=== PATIENT | male | born 1940 | race Caucasian/White ===

== ENCOUNTER → 2017-04-20 | Day surgery (SDC) | payer MEDICARE, BC ==
[~2017-04-20] MED LIST: Lactated Ringers 1,000 ML IV SCH; Propofol 200 MG/20 ML SDV IV ONE
[2017-04-20 12:51] VITALS: BP 142/85
--- NOTE | 2017-04-23 07:17 | OR ---
DATE OF OPERATION: 04/20/2017 PREOPERATIVE DIAGNOSIS: NAUSEA AND EPIGASTRIC PAIN. POSTOPERATIVE DIAGNOSIS: NAUSEA AND EPIGASTRIC PAIN. SURGEON: Alejandro Leiva MD PROCEDURE: EGD WITH BIOPSIES X5, DEJUAN. 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 BODY AFTER ALLERGIES: COMPLICATIONS: None. SPECIMEN: 1. Antral biopsy x2. 2. Fundal biopsy x1. 3. DEJUAN. 4. Distal esophageal biopsy x2. FINDINGS: 1. Full-length EGD. 2. Diffuse peptic ulcer disease, fundus, antrum and, duodenum. 3. Hiatal hernia with spontaneous reflux and severe distal esophagitis. RECOMMENDATIONS: The patient will be placed on appropriate proton pump therapy and have close medical followup. INDICATIONS: The patient presented to my office, admitted having some dyspepsia, weight loss, and poor appetite. We elected to proceed with EGD. DESCRIPTION OF PROCEDURE: The patient was prepped and draped, placed in the left lateral decubitus position. A lubricated Olympus gastroscope was inserted and easily intubated in the esophagus. Esophageal lining at its first two thirds appeared benign. The distal third of the esophagus has marked linear ulcerations and esophagitis related to reflux. There is a hiatal hernia associated with this, no signs of stricturing or obvious Argueta's changes. Two biopsies of the distal esophagus were taken over its most affected portion. The scope was advanced into the stomach through the pylorus into the third portion of the duodenum. The duodenal bulb and second portion of duodenum showed signs of peptic ulcer disease and duodenitis present in the bulb. There are two small ulcers in the early second portion of duodenum. The scope was brought back into the stomach and retroflexed. The upper fundus and cardia appeared benign. Hernia was visualized easily from below, no signs of any polyps, mass, or otherwise. There is a long linear ulceration throughout most of the fundus extending along the greater curvature, biopsy of that was taken. There are 3-4 small ulcers in the antrum, two biopsies were taken and CLOtest. Air was then suctioned and the scope removed without complication. PRIETO/FARTUN /[id number]
== END ==
LOC: CC.SDS 10:37
PROVIDERS: ATTEND Family Medicine
DX: K22.10 Ulcer of esophagus without bleeding (principal); K25.9 Gastric ulcer, unspecified as acute or chronic, without hemorrhage or perforation; I10 Essential (primary) hypertension; K21.0 Gastro-esophageal reflux disease with esophagitis; E11.9 Type 2 diabetes mellitus without complications; E78.5 Hyperlipidemia, unspecified; G47.33 Obstructive sleep apnea (adult) (pediatric); N40.0 Benign prostatic hyperplasia without lower urinary tract symptoms; Z79.84 Long term (current) use of oral hypoglycemic drugs; Z79.82 Long term (current) use of aspirin; Z79.899 Other long term (current) drug therapy; Z87.891 Personal history of nicotine dependence
CPT/HCPCS: 43239; 82962; 87081; J2704; J7120; 00740; 88305

== ENCOUNTER 2020-02-17 18:39 | Observation (INO) | payer MEDICARE, BC ==
[2020-02-17 18:57] LABS: PTT,PARTIAL THROMBOPLSTIN TIME 21.4 SEC (23.2-32.3)
[2020-02-17 19:01] LABS: CHLORIDE,CL 102 mEq/L (98-106); SODIUM,NA 142 mEq/L (136-145)
--- NOTE | 2020-02-17 19:39 | EDM.PDOC ---
ED HPI GENERAL MEDICAL PROBLEM - General Chief Complaint: Neuro Symptoms/Deficits Stated Complaint: unresponsive at home Time Seen by Provider: 02/17/20 18:40 Source of Information: Reports: EMS History Limitations: Reports: Altered Mental Status - History of Present Illness INITIAL COMMENTS - FREE TEXT/NARRATIVE: Patient presents to ER per EMS after a near syncopal episode. They were in [place] at a friend's house eating supper. Was eating pizza and noted he wasn't eating per his norm. Then had a blank stare, wasn't responding well to them. "still breathing and such but was like talking to a wall" so EMS was called. On arrival, blood pressure was in the 70s/40s at the scene. In the ambulance, blood pressure had improved to 140 systolically. Per EMS was not moving his extremities well to command, questioned facial droop. On arrival here, patient follows commands well but is disoriented. No recall of events or awareness of where he is or the date. Stroke code initiated. Onset: Today, Sudden Duration: Minutes: Location: Reports: Generalized Associated Symptoms: Reports: Confusion, Weakness. Denies: Chest Pain, Cough, Fever/Chills, Loss of Appetite, Nausea/Vomiting, Shortness of Breath - Related Data Allergies Allergy/AdvReac Type Severity Reaction Status Date / Time No Known Allergies Allergy Verified 04/20/17 10:46 Home Meds: Home Meds Aspirin [Halfprin] 81 mg PO DAILY 01/13/16 [History] Lisinopril 10 mg PO DAILY 01/13/16 [History] Naproxen Sodium [Aleve] 220 mg PO BID PRN 01/13/16 [History] Simvastatin 40 mg PO BEDTIME 01/13/16 [History] Tamsulosin HCl 0.8 mg PO DAILY 01/13/16 [History] amLODIPine Besylate [Amlodipine Besylate] 10 mg PO DAILY 01/13/16 [History] metFORMIN HCl [Metformin HCl] 1,000 mg PO BIDMEALS 01/13/16 [History] Past Medical History - Past Health History Medical/Surgical History: Denies Medical/Surgical History Cardiovascular History: Reports: High Cholesterol, Hypertension Respiratory History: Reports: Sleep Apnea Gastrointestinal History: Reports: PUD Neurological History: Reports: Other (See Below) Other Neuro History: memory impairment Endocrine/Metabolic History: Reports: Diabetes, Type II - Past Surgical History Other HEENT Surgeries/Procedures: pt confused of past health Social & Family History - Tobacco Use Smoking Status *Q: Never Smoker - Recreational Drug Use Recreational Drug Use: No ED ROS GENERAL - Review of Systems Review Of Systems: Unable To Obtain Reason Not Obtained: disoriented on arrival, does follow commands. Denies pain or SOB - Physical Exam Exam: See Below Exam Limited By: Altered Mental Status General Appearance: Alert Eye Exam: Bilateral Eye: EOMI, PERRL Ears: Normal External Exam, Normal TMs Nose: Normal Inspection, Normal Mucosa, No Blood Throat/Mouth: Normal Inspection, Normal Oropharynx Head Exam: Normocephalic Neck: Normal Inspection, Supple, Non-Tender Respiratory/Chest: No Respiratory Distress, Lungs Clear, Normal Breath Sounds Cardiovascular: Regular Rate, Rhythm GI/Abdominal: Normal Bowel Sounds, Soft, Non-Tender Neuro Exam (Abbreviated): Alert, CN II-XII Intact, Disoriented (oriented to person only), Memory Loss Recent Events, Other (NIH scale completed. Patient disoriented to place and time. Does follow commands, no weakness noted in extremities. Right side peripheral deficit noted, 2 points off for disorientation. Unable to completely explain picture, some difficulty with recall. ) Extremities: Normal Inspection, Normal Range of Motion, No Pedal Edema Skin Exam: Warm, Dry Course - Vital Signs Last Recorded V/S: Last Vital Signs Temp 96 F L 02/17/20 19:45 Pulse 65 02/17/20 19:45 Resp 17 02/17/20 19:45 BP 131/75 02/17/20 19:45 Pulse Ox 98 02/17/20 19:45 - Orders/Labs/Meds Orders: Active Orders 24 hr Category Date Time Status Patient Status Manage Transfer [TRANSFER] Routine ADT 02/17/20 19:40 Active Assess Neurological Status [RC] CONTINUOUS Care 02/17/20 18:43 Active Cardiac Monitoring [RC] CONTINUOUS Care 02/17/20 18:43 Active Communication Order [RC] STAT Care 02/17/20 18:43 Active Height and Weight [RC] UPON Care 02/17/20 18:43 Active NIH Stroke Scale [RC] Q15M Care 02/17/20 18:43 Active NIH Stroke Scale [RC] STAT Care 02/17/20 18:43 Active Oxygen Therapy, ED [RC] ASDIRECTED Care 02/17/20 18:43 Active Vital Signs [RC] Q15M Care 02/17/20 18:43 Active Head wo Cont [CT] Stat Exams 02/17/20 18:43 Taken Resuscitation Status Stat Resus Stat 02/17/20 18:43 Ordered Labs: Laboratory Tests 02/17/20 02/17/20 02/17/20 Range/Units 18:43 18:43 18:43 WBC 8.5 (5.0-10.0) 10^3/uL RBC 4.95 (4.50-6.00) 10^6/uL Hgb 15.2 (14.0-18.0) g/dL Hct 43.9 (40.0-54.0) % MCV 88.7 (82.0-94.0) fL MCH 30.7 (27.0-32.0) pg MCHC 34.6 (33.0-38.0) g/dL RDW Coeff of Page 13.1 (11.0-15.0) % Plt Count 206 (150-400) 10^3/uL Neut % (Auto) 46.2 (35-85) % Lymph % (Auto) 36.2 (10-55) % [place] % (Auto) 10.0 (0-16) % Eos % (Auto) 6.7 H (0-5) % Baso % (Auto) 0.9 (0-3) % Neut # (Auto) 3.90 (1.80-7.00) 10^3/uL Lymph # (Auto) 3.06 (1.00-4.80) 10^3/uL [place] # (Auto) 0.85 H (0.00-0.80) 10^3/uL Eos # (Auto) 0.57 H (0.00-0.45) 10^3/uL Baso # (Auto) 0.08 10^3/uL PT 11.5 (9.7-12.3) SEC INR 1.14 (0.92-1.18) APTT 21.4 L (23.2-32.3) SEC Sodium 142 (136-145) mEq/L Potassium 3.7 (3.5-5.0) mEq/L Chloride 102 (98-106) mEq/L Carbon Dioxide 29 (21-32) mmol/L BUN 21 H (7-18) mg/dL Creatinine 1.3 (0.7-1.3) mg/dL Est Cr Clr Drug Dosing 43.12 mL/min Estimated GFR (MDRD) 53 L (>=60) mL/min Glucose 132 H (75-99) mg/dL Calcium 9.1 (8.4-10.1) mg/dL Total Bilirubin 0.6 (0.0-1.0) mg/dL AST 12 L (15-37) U/L ALT 12 (12-78) U/L Alkaline Phosphatase 60 (46-116) U/L Troponin I < 0.017 (0.00-0.06) ng/mL Total Protein 6.8 (6.4-8.2) g/dL Albumin 4.0 (3.4-5.0) g/dL Urine Color (YELLOW) Urine Appearance (CLEAR) Urine pH (4.5-8.0) Ur Specific [place] (1.003-1.020) Urine Protein (NEGATIVE) mg/dL Urine Glucose (UA) (NEGATIVE) mg/dL Urine Ketones (NEGATIVE) mg/dL Urine Occult Blood (NEGATIVE) Urine Nitrite (NEGATIVE) Urine Bilirubin (NEGATIVE) Urine Urobilinogen (0.2-1.0) EU/dL Ur Leukocyte Esterase (NEGATIVE) U Hyaline Cast (Auto) (NOT SEEN) /LPF Urine RBC (0-5) /HPF Urine WBC (0-5) /HPF Ur Epithelial Cells (NOT SEEN) /HPF Urine Mucus (NOT SEEN) /HPF 05/12/ Range/Units 19:27 WBC (5.0-10.0) 10^3/uL RBC (4.50-6.00) 10^6/uL Hgb (14.0-18.0) g/dL Hct (40.0-54.0) % MCV (82.0-94.0) fL MCH (27.0-32.0) pg MCHC (33.0-38.0) g/dL RDW Coeff of Page (11.0-15.0) % Plt Count (150-400) 10^3/uL Neut % (Auto) (35-85) % Lymph % (Auto) (10-55) % [place] % (Auto) (0-16) % Eos % (Auto) (0-5) % Baso % (Auto) (0-3) % Neut # (Auto) (1.80-7.00) 10^3/uL Lymph # (Auto) (1.00-4.80) 10^3/uL [place] # (Auto) (0.00-0.80) 10^3/uL Eos # (Auto) (0.00-0.45) 10^3/uL Baso # (Auto) 10^3/uL PT (9.7-12.3) SEC INR (0.92-1.18) APTT (23.2-32.3) SEC Sodium (136-145) mEq/L Potassium (3.5-5.0) mEq/L Chloride (98-106) mEq/L Carbon Dioxide (21-32) mmol/L BUN (7-18) mg/dL Creatinine (0.7-1.3) mg/dL Est Cr Clr Drug Dosing mL/min Estimated GFR (MDRD) (>=60) mL/min Glucose (75-99) mg/dL Calcium (8.4-10.1) mg/dL Total Bilirubin (0.0-1.0) mg/dL AST (15-37) U/L ALT (12-78) U/L Alkaline Phosphatase (46-116) U/L Troponin I (0.00-0.06) ng/mL Total Protein (6.4-8.2) g/dL Albumin (3.4-5.0) g/dL Urine Color Ellie (YELLOW) Urine Appearance Slightly cloudy (CLEAR) Urine pH 5.5 (4.5-8.0) Ur Specific [place] >= 1.030 H (1.003-1.020) Urine Protein 30 H (NEGATIVE) mg/dL Urine Glucose (UA) Negative (NEGATIVE) mg/dL Urine Ketones 15 H (NEGATIVE) mg/dL Urine Occult Blood Negative (NEGATIVE) Urine Nitrite Negative (NEGATIVE) Urine Bilirubin Small H (NEGATIVE) Urine Urobilinogen 1.0 (0.2-1.0) EU/dL Ur Leukocyte Esterase Negative (NEGATIVE) U Hyaline Cast (Auto) Moderate H (NOT SEEN) /LPF Urine RBC 0-5 (0-5) /HPF Urine WBC 0-5 (0-5) /HPF Ur Epithelial Cells Few H (NOT SEEN) /HPF Urine Mucus Many H (NOT SEEN) /HPF - Re-Assessments/Exams Free Text/Narrative Re-Assessment/Exam: 02/17/20 Approximately 30 minutes after arrival, patient following commands, speaking more clearly, oriented. Unable to recall meds but per record, does have memory impairment. Discussed with , has been "off as of late". Was in to see Dr. Leiva 2 weeks ago for memory issues, loss of taste and smell. Labs all normal. Urine does show spec grav of greater than 1.030. CT scan of head was done, negative. EKG normal sinus rhythm. Contacted Dr. Leiva to discuss patient. Will admit to observation, telemetry, neuro checks. Will proceed with carotid ultrasound and echocardiogram. Consider MRI of brain on Sunday. Departure - Departure Time of Disposition: 20:31 Disposition: Refer to Observation Condition: Fair Clinical Impression: Near syncope - Discharge Information *PRESCRIPTION DRUG MONITORING PROGRAM REVIEWED*: No *COPY OF PRESCRIPTION DRUG MONITORING REPORT IN PATIENT EMMA: No Referrals: PCP,None [Primary Care Provider] - Forms: ED Department Discharge Sepsis Event Note - Evaluation Sepsis Screening Result: No Definite Risk - Focused Exam Vital Signs: Vital Signs Temp Pulse Resp BP Pulse Ox Pulse Ox 02/17/20 19:45 96 F L 65 17 131/75 98 02/17/20 19:30 96 F L 64 16 162/78 H 97 02/17/20 19:15 96 F L 67 16 151/81 H 95 02/17/20 19:13 66 18 159/84 H 99 02/17/20 18:58 97 17 158/82 H 98 02/17/20 18:47 96 F L 58 L 16 158/82 H 95 02/17/20 18:43 98 Date Exam was Performed: 02/17/20 Time Exam was Performed: 20:23 - Problem List & Annotations (1) Near syncope SNOMED Code(s): 897565928 Code(s): R55 - SYNCOPE AND COLLAPSE Status: Acute Priority: High Current Visit: Yes - Problem List Review Problem List Initiated/Reviewed/Updated: Yes - My Orders Last 24 Hours: My Active Orders 02/17/20 18:43 Assess Neurological Status [RC] CONTINUOUS Cardiac Monitoring [RC] CONTINUOUS Communication Order [RC] STAT Height and Weight [RC] UPON NIH Stroke Scale [RC] Q15M NIH Stroke Scale [RC] STAT Oxygen Therapy, ED [RC] ASDIRECTED Vital Signs [RC] Q15M Head wo Cont [CT] Stat Resuscitation Status Stat 02/17/20 19:40 Patient Status Manage Transfer [TRANSFER] Routine - Assessment/Plan Admission H&P: Please use this note as an admission H&P Last 24 Hours: My Active Orders 02/17/20 18:43 Assess Neurological Status [RC] CONTINUOUS Cardiac Monitoring [RC] CONTINUOUS Communication Order [RC] STAT Height and Weight [RC] UPON NIH Stroke Scale [RC] Q15M NIH Stroke Scale [RC] STAT Oxygen Therapy, ED [RC] ASDIRECTED Vital Signs [RC] Q15M Head wo Cont [CT] Stat Resuscitation Status Stat 02/17/20 19:40 Patient Status Manage Transfer [TRANSFER] Routine Assessment:: Near Syncope Plan: Admit to observation. Cardiac monitoring. Repeat neuro checks. Obtain echocardiogram and carotid ultrasound.
[2020-02-17] MEDS ORDERED: Ondansetron 4 MG Tab.DIS PO PRN (20:38)
[2020-02-17] MEDS ORDERED: Acetaminophen 325 MG Tab PO PRN (20:38)
[2020-02-17] MEDS ORDERED: Ondansetron 4 MG/2 ML SDV IV PRN (20:38)
[2020-02-17] MEDS ORDERED: Sodium Chloride 0.9% 10 ML Syringe FLUSH PRN (20:38)
[2020-02-17] MEDS: Enoxaparin 40 MG/0.4 ML Syringe SUBCUT SCH (21:27)
[2020-02-17] MEDS: Sodium Chloride 0.9% 1,000 ML IV SCH (21:28)
[2020-02-18] MEDS: Sodium Chloride 0.9% 1,000 ML IV SCH ×2 (07:00→18:28)
[2020-02-18 07:34] LABS: CHLORIDE,CL 105 mEq/L (98-106); SODIUM,NA 140 mEq/L (136-145)
[2020-02-18] MEDS: Aspirin 81 MG Tab.EC PO SCH (08:46)
[2020-02-18] MEDS: amLODIPine 10 MG Tab **OWN MED PO SCH (08:46)
[2020-02-18] MEDS: METFORMIN HCL 1000 MG PO SCH ×2 (08:46→19:51)
[2020-02-18] MEDS: SITAGLIPTIN 50 MG PO SCH (08:47)
[2020-02-18] MEDS: Lisinopril 10 MG Tab **OWN MED PO SCH (08:48)
[2020-02-18] MEDS: Pantoprazole 40 MG Tab.CR **OWN MED PO SCH (08:48)
[2020-02-18] MEDS: Tamsulosin 0.4 MG Cap.ER **OWN MED PO SCH (10:23)
--- NOTE | 2020-02-18 18:59 | PCM.PN ---
- General Info Date of Service: 02/18/20 Admission Dx/Problem (Free Text): Near Syncope Functional Status: Reports: Pain Controlled, Tolerating Diet, Ambulating - Review of Systems General: Reports: Weakness, Fatigue. Denies: Fever HEENT: Reports: No Symptoms Pulmonary: Denies: Shortness of Breath, Cough Cardiovascular: Denies: Chest Pain, Edema, Lightheadedness Gastrointestinal: Denies: Abdominal Pain, Nausea, Vomiting Genitourinary: Reports: No Symptoms Musculoskeletal: Reports: No Symptoms Skin: Reports: No Symptoms Neurological: Reports: Weakness - Patient Data Vitals - Most Recent: Last Vital Signs Temp 96.7 F L 02/18/20 16:00 Pulse 57 L 02/18/20 16:00 Resp 16 02/18/20 16:00 BP 136/65 02/18/20 16:00 Pulse Ox 97 02/18/20 16:00 Weight - Most Recent: 169 lb 12.8 oz I&O - Last 24 Hours: Intake & Output 02/18/20 02/18/20 02/18/20 06:59 14:59 22:59 Intake Total 953 1000 Balance 953 1000 Lab Results Last 24 Hours: Laboratory Results - last 24 hr 02/17/20 02/17/20 02/17/20 Range/Units 18:43 18:43 19:27 WBC (5.0-10.0) 10^3/uL RBC (4.50-6.00) 10^6/uL Hgb (14.0-18.0) g/dL Hct (40.0-54.0) % MCV (82.0-94.0) fL MCH (27.0-32.0) pg MCHC (33.0-38.0) g/dL RDW Coeff of Page (11.0-15.0) % Plt Count (150-400) 10^3/uL Neut % (Auto) (35-85) % Lymph % (Auto) (10-55) % [place] % (Auto) (0-16) % Eos % (Auto) (0-5) % Baso % (Auto) (0-3) % Neut # (Auto) (1.80-7.00) 10^3/uL Lymph # (Auto) (1.00-4.80) 10^3/uL [place] # (Auto) (0.00-0.80) 10^3/uL Eos # (Auto) (0.00-0.45) 10^3/uL Baso # (Auto) 10^3/uL PT 11.5 (9.7-12.3) SEC INR 1.14 (0.92-1.18) APTT 21.4 L (23.2-32.3) SEC Sodium 142 (136-145) mEq/L Potassium 3.7 (3.5-5.0) mEq/L Chloride 102 (98-106) mEq/L Carbon Dioxide 29 (21-32) mmol/L BUN 21 H (7-18) mg/dL Creatinine 1.3 (0.7-1.3) mg/dL Est Cr Clr Drug Dosing 43.12 mL/min Estimated GFR (MDRD) 53 L (>=60) mL/min Glucose 132 H (75-99) mg/dL Calcium 9.1 (8.4-10.1) mg/dL Total Bilirubin 0.6 (0.0-1.0) mg/dL AST 12 L (15-37) U/L ALT 12 (12-78) U/L Alkaline Phosphatase 60 (46-116) U/L Creatine Kinase (35-232) U/L Troponin I < 0.017 (0.00-0.06) ng/mL Total Protein 6.8 (6.4-8.2) g/dL Albumin 4.0 (3.4-5.0) g/dL Urine Color Ellie (YELLOW) Urine Appearance Slightly cloudy (CLEAR) Urine pH 5.5 (4.5-8.0) Ur Specific [place] >= 1.030 H (1.003-1.020) Urine Protein 30 H (NEGATIVE) mg/dL Urine Glucose (UA) Negative (NEGATIVE) mg/dL Urine Ketones 15 H (NEGATIVE) mg/dL Urine Occult Blood Negative (NEGATIVE) Urine Nitrite Negative (NEGATIVE) Urine Bilirubin Small H (NEGATIVE) Urine Urobilinogen 1.0 (0.2-1.0) EU/dL Ur Leukocyte Esterase Negative (NEGATIVE) U Hyaline Cast (Auto) Moderate H (NOT SEEN) /LPF Urine RBC 0-5 (0-5) /HPF Urine WBC 0-5 (0-5) /HPF Ur Epithelial Cells Few H (NOT SEEN) /HPF Urine Mucus Many H (NOT SEEN) /HPF 02/18/20 02/18/20 Range/Units 06:55 06:55 WBC 8.7 (5.0-10.0) 10^3/uL RBC 4.41 L (4.50-6.00) 10^6/uL Hgb 13.4 L (14.0-18.0) g/dL Hct 39.3 L (40.0-54.0) % MCV 89.1 (82.0-94.0) fL MCH 30.4 (27.0-32.0) pg MCHC 34.1 (33.0-38.0) g/dL RDW Coeff of Page 13.1 (11.0-15.0) % Plt Count 189 (150-400) 10^3/uL Neut % (Auto) 57.4 (35-85) % Lymph % (Auto) 28.7 (10-55) % [place] % (Auto) 8.5 (0-16) % Eos % (Auto) 4.7 (0-5) % Baso % (Auto) 0.7 (0-3) % Neut # (Auto) 5.00 (1.80-7.00) 10^3/uL Lymph # (Auto) 2.50 (1.00-4.80) 10^3/uL [place] # (Auto) 0.74 (0.00-0.80) 10^3/uL Eos # (Auto) 0.41 (0.00-0.45) 10^3/uL Baso # (Auto) 0.06 10^3/uL PT (9.7-12.3) SEC INR (0.92-1.18) APTT (23.2-32.3) SEC Sodium 140 (136-145) mEq/L Potassium 3.7 (3.5-5.0) mEq/L Chloride 105 (98-106) mEq/L Carbon Dioxide 28 (21-32) mmol/L BUN 21 H (7-18) mg/dL Creatinine 1.1 (0.7-1.3) mg/dL Est Cr Clr Drug Dosing 50.95 mL/min Estimated GFR (MDRD) > 60 (>=60) mL/min Glucose 104 H (75-99) mg/dL Calcium 8.2 L (8.4-10.1) mg/dL Total Bilirubin (0.0-1.0) mg/dL AST (15-37) U/L ALT (12-78) U/L Alkaline Phosphatase (46-116) U/L Creatine Kinase 25 L (35-232) U/L Troponin I (0.00-0.06) ng/mL Total Protein (6.4-8.2) g/dL Albumin (3.4-5.0) g/dL Urine Color (YELLOW) Urine Appearance (CLEAR) Urine pH (4.5-8.0) Ur Specific [place] (1.003-1.020) Urine Protein (NEGATIVE) mg/dL Urine Glucose (UA) (NEGATIVE) mg/dL Urine Ketones (NEGATIVE) mg/dL Urine Occult Blood (NEGATIVE) Urine Nitrite (NEGATIVE) Urine Bilirubin (NEGATIVE) Urine Urobilinogen (0.2-1.0) EU/dL Ur Leukocyte Esterase (NEGATIVE) U Hyaline Cast (Auto) (NOT SEEN) /LPF Urine RBC (0-5) /HPF Urine WBC (0-5) /HPF Ur Epithelial Cells (NOT SEEN) /HPF Urine Mucus (NOT SEEN) /HPF Med Orders - Current: Current Medications Acetaminophen (Tylenol) 650 mg PO Q4H PRN PRN Reason: Pain (Mild 1-3)/fever Amlodipine Besylate (Norvasc) 10 mg PO DAILY [facility] Last Admin: 02/18/20 08:46 Dose: 10 mg Aspirin (Halfprin) 81 mg PO DAILY [facility] Last Admin: 02/18/20 08:46 Dose: 81 mg Enoxaparin Sodium (Lovenox) 40 mg SUBCUT Q24H [facility] Last Admin: 02/17/20 21:27 Dose: 40 mg Sodium Chloride (Normal Saline) 1,000 mls @ 100 mls/hr IV ASDIRECTED [facility] Last Admin: 02/18/20 18:28 Dose: 100 mls/hr Lisinopril (Prinivil) 10 mg PO DAILY [facility] Last Admin: 02/18/20 08:48 Dose: 10 mg Metformin Hcl [ Glucophage) 1,000 Mg Tab Own Med 0 mg PO BID [facility] Last Admin: 02/18/20 08:46 Dose: 1,000 mg Sitagliptin [Januvia ] 50 Mg Tab Own Med 0 mg PO DAILY [facility] Last Admin: 02/18/20 08:47 Dose: 50 mg Ondansetron HCl (Zofran Odt) 4 mg PO Q4H PRN PRN Reason: nausea, able to take PO Ondansetron HCl (Zofran) 4 mg IV Q4H PRN PRN Reason: Nausea/Vomiting Pantoprazole Sodium (Protonix) 40 mg PO ACBREAKFAST [facility] Last Admin: 02/18/20 08:48 Dose: 40 mg Simvastatin (Zocor) 40 mg PO BEDTIME [facility] Sodium Chloride (Saline Flush) 10 ml FLUSH ASDIRECTED PRN PRN Reason: Keep Vein Open Tamsulosin HCl (Flomax) 0.8 mg PO DAILY [facility] Last Admin: 02/18/20 10:23 Dose: 0.8 mg - Exam General: Alert, Oriented HEENT: Mucous Membr. Moist/[place] Neck: Supple Lungs: Clear to Auscultation, Normal Respiratory Effort Cardiovascular: Regular Rate, Regular Rhythm GI/Abdominal Exam: Normal Bowel Sounds, Soft, Non-Tender Extremities: Normal Inspection, No Pedal Edema Skin: Warm, Dry Neurological: No New Focal Deficit Sepsis Event Note - Evaluation Sepsis Screening Result: No Definite Risk - Focused Exam Vital Signs: Vital Signs Temp Pulse Resp BP BP BP Pulse Ox 02/18/20 16:00 96.7 F L 57 L 16 136/65 97 02/18/20 11:18 97.3 F 52 L 16 154/69 H 99 02/18/20 08:48 155/74 H 02/18/20 08:46 155/71 H 02/18/20 07:36 97.3 F 53 L 16 155/71 H 97 Date Exam was Performed: 02/18/20 Time Exam was Performed: 18:54 - Problem List & Annotations (1) Near syncope SNOMED Code(s): 960237349 Code(s): R55 - SYNCOPE AND COLLAPSE Status: Acute Priority: High Current Visit: Yes - Problem List Review Problem List Initiated/Reviewed/Updated: Yes - My Orders Last 24 Hours: My Active Orders 02/17/20 18:43 Assess Neurological Status [RC] CONTINUOUS Cardiac Monitoring [RC] 0800,2000 Height and Weight [RC] UPON NIH Stroke Scale [RC] Q15M NIH Stroke Scale [RC] STAT Head wo Cont [CT] Stat Resuscitation Status Stat 02/17/20 20:38 Patient Status [ADT] Routine Neuro Check [RC] 0000,0400,0800,1200,1600,1999 Oxygen Therapy [RC] .PRN Up With Assistance [RC] .PRN Acetaminophen [Tylenol] 650 mg PO Q4H PRN Ondansetron [Zofran ODT] 4 mg PO Q4H PRN Ondansetron [Zofran] 4 mg IV Q4H PRN Sodium Chloride 0.9% [Saline Flush] 10 ml FLUSH ASDIRECTED PRN Peripheral IV Insertion Adult [OM.PC] Routine 02/17/20 20:45 Sodium Chloride 0.9% [Normal Saline] 1,000 ml IV ASDIRECTED 02/17/20 21:00 Enoxaparin [Lovenox] 40 mg SUBCUT Q24H 02/18/20 00:00 Vital Signs [RC] 0000,0400,0800,1200,1600,2000 02/18/20 05:11 Carotid Comp [US] Routine Echo Comp wo Cont [US] Routine 02/18/20 08:00 Aspirin [Halfprin] 81 mg PO DAILY Pantoprazole [ProTONIX] 40 mg PO ACBREAKFAST amLODIPine [Norvasc] 10 mg PO DAILY lisinopriL [Prinivil] 10 mg PO DAILY metFORMIN HCl [Metformin HCl] 0 mg PO BID sitaGLIPtin Phosphate [Januvia] 0 mg PO DAILY 02/18/20 10:30 Tamsulosin [Flomax] 0.8 mg PO DAILY 02/18/20 20:00 Simvastatin [Zocor] 40 mg PO BEDTIME 02/18/20 Breakfast Consistent Carbohydrate Diet [DIET] - Assessment Assessment:: Near Syncope - Plan Plan:: Patient is feeling better today. Feels stronger today. Questions if his exhaustion and the episode occurred as a result of dehydration. Did feel that had not drank enough fluids and had been busy the day prior mowing lawn. Is eating and drinking well today. Ambulating well today. Denies any lightheadedness, chest pain, shortness of breath this am. Labs this am are stable, CK normal at 25. Blood pressure was low during the night at 117/53. Normal this am, 155/74. Will obtain echocardiogram and carotid ultrasound. Continue to monitor telemetry. Continue to hold Aricept and Ambien. Possible discharge home tomorrow.
[2020-02-18] MEDS ORDERED: Simvastatin 40 MG Tab **OWN MED PO SCH (20:00)
[2020-02-18] MEDS: Enoxaparin 40 MG/0.4 ML Syringe SUBCUT SCH (20:01)
[2020-02-19] MEDS: Pantoprazole 40 MG Tab.CR **OWN MED PO SCH (06:03)
[2020-02-19] MEDS: Lisinopril 10 MG Tab **OWN MED PO SCH (08:41)
[2020-02-19] MEDS: amLODIPine 10 MG Tab **OWN MED PO SCH (08:41)
[2020-02-19] MEDS: SITAGLIPTIN 50 MG PO SCH (08:41)
[2020-02-19] MEDS: METFORMIN HCL 1000 MG PO SCH (08:42)
[2020-02-19] MEDS: Tamsulosin 0.4 MG Cap.ER **OWN MED PO SCH (08:42)
[2020-02-19] MEDS: Aspirin 81 MG Tab.EC PO SCH (08:44)
[2020-02-19 08:46] VITALS: BP 184/82
[2020-02-19 11:01] VITALS: PULSE 61
--- NOTE | 2020-02-20 08:17 | DISCH ---
ADMISSION DIAGNOSES: 1. Syncopal episode, possible cerebrovascular accident. 2. Dehydration. 3. Hypertension. 4. Type 2 diabetes. DISCHARGE DIAGNOSIS: 1. NEAR-SYNCOPE. 2. DEHYDRATION, IMPROVED. 3. TYPE 2 DIABETES. 4. HYPERTENSION. HISTORY: The patient is an 80-year-old who presented having a near-syncopal episode at home. He had been doing a lot of work, ambulating, and mowing the lawn, etc. By the time the ambulance got there, his blood pressures, which were initially around 70/40, came up on their own. He came to [facility], was found to be a little sluggish and confused, but no focality to his neuro exam according to notes. Georgina Castro admitted him for observation. CT of the head was negative, and his labs were unremarkable. HOSPITAL COURSE: The patient has done well since being here after being fluid resuscitated. He has essentially had a normal neuro exam. He denies any complaints. His blood pressures have been fine, little hypertensive today. We did hold both his Ambien and his Aricept as he has been having some side effects consistent possibly with those medications, and he will continue to monitor that. He had an echocardiogram and a carotid ultrasound. The carotid was negative. Echo results are pending. He did have what he described as some blurry vision in his right eye, and Georgina thought initially on admit he had some loss of peripheral vision over there. So we are going to get an MRI of his brain tomorrow. For now, we will keep him on daily aspirin. At the time of his discharge, he appears stable. He will go home on his prior medications without the Ambien and Aricept, and MRI will be done tomorrow morning. COMPLICATIONS: During the stay were none. CONSULTATIONS: None. DISPOSITION: Discharged home. PRIETO/FARTUN /[id number]
== END 2020-02-19 11:20 | disposition home or self-care (01) ==
LOC: CC.ED 18:39 → CC.MS 19:40 → UNDOADMOB 20:34
PROVIDERS: ADMIT Physician Assistant Medical; ATTEND Family Medicine
DX: R55 Syncope and collapse (principal); E86.0 Dehydration; E78.00 Pure hypercholesterolemia, unspecified; I10 Essential (primary) hypertension; E11.9 Type 2 diabetes mellitus without complications; Z79.84 Long term (current) use of oral hypoglycemic drugs; Z79.899 Other long term (current) drug therapy
CPT/HCPCS: 36415; 70450; 80048; 80053; 81001; 82550; 84484; 85025; 85610; 85730; 93005; 93306; 93880; 96360; 96361; 96372; 99285-25; A9270-GY; G0378; J1650; J7030

== ENCOUNTER 2020-09-23 15:18 | Inpatient (IN) | payer MEDICARE, BC ==
[2020-09-23 15:49] LABS: CHLORIDE,CL 101 mEq/L (98-106); SODIUM,NA 138 mEq/L (136-145)
[2020-09-23] MEDS ORDERED: NS + KCl 20mEq/L 1,000 ML IV SCH (17:00)
[2020-09-23] MEDS ORDERED: 50% Dextrose in Water 50 ML Syringe IV PRN (17:01)
[2020-09-23] MEDS ORDERED: Glucagon,Human Recombinant 1 MG Vial IM PRN (17:01)
[2020-09-23] MEDS: Insulin Lispro 100 Units/ML 3 ML Vial SUBCUT SCH ×2 (17:27→21:15)
[2020-09-23] MEDS: amLODIPine 10 MG Tab PO SCH (17:28)
[2020-09-23] MEDS: Lisinopril 10 MG Tab PO SCH (18:58)
[2020-09-23] MEDS: Simvastatin 40 MG Tab PO SCH (19:21)
[2020-09-23] MEDS: Enoxaparin 40 MG/0.4 ML Syringe SUBCUT SCH (21:14)
[2020-09-24] MEDS: Pantoprazole 40 MG Tab.CR PO SCH (06:28)
[2020-09-24 07:35] LABS: CHLORIDE,CL 104 mEq/L (98-106); SODIUM,NA 142 mEq/L (136-145)
[2020-09-24] MEDS: metFORMIN 500 MG Tab PO SCH (08:02)
[2020-09-24] MEDS: Tamsulosin 0.4 MG Cap.ER PO SCH (08:03)
[2020-09-24] MEDS: amLODIPine 10 MG Tab PO SCH (08:03)
[2020-09-24] MEDS: Aspirin 81 MG Tab.EC PO SCH (08:03)
[2020-09-24] MEDS: Lisinopril 10 MG Tab PO SCH (08:04)
[2020-09-24] MEDS: Insulin Lispro 100 Units/ML 3 ML Vial SUBCUT SCH ×4 (08:04→20:24)
[2020-09-24] MEDS ORDERED: Potassium Chloride Riders 40 MEQ in Premix Bag 1 BAG IV ONE (09:30)
[2020-09-24] MEDS ORDERED: Sodium Chloride 0.9% 250 ML IV ONE (09:30)
[2020-09-24] MEDS: Nitroglycerin 2% Oint 1 GM UD Packet TOP SCH ×2 (09:37→17:30)
[2020-09-24] MEDS: Potassium Chloride 10 MEQ Tab.ER PO SCH (09:37)
[2020-09-24] MEDS ORDERED: cloNIDine 0.1 MG Tab PO STA (12:11)
[2020-09-24] MEDS: Simvastatin 40 MG Tab PO SCH (19:58)
[2020-09-24] MEDS: Enoxaparin 40 MG/0.4 ML Syringe SUBCUT SCH (19:59)
[2020-09-24] MEDS: Acetaminophen 325 MG Tab PO PRN (19:59)
--- NOTE | 2020-09-24 21:33 | PCM.PN ---
- General Info Date of Service: 09/24/20 Admission Dx/Problem (Free Text): Hypertensive urgency Hypokalemia Memory loss Subjective Update: Tashi is an 80 yo male who was admitted to the hospital by Dr. Leiva yesterday with hypertensive urgency. Patient had presented to the clinic with his spouse to discuss a decline in memory. Symptoms were noted to be getting worse over the last 3-4 weeks. Upon work up by Dr. Leiva, patient had significant elevation of his blood pressure and found to have hypokalemia. Patient was a direct admit from hospital. Patient is a known diabetic with elevated blood sugar readings and was started on sliding scale while in hospital. Functional Status: Reports: Ambulating, Urinating. Denies: New Symptoms - Review of Systems General: Reports: Fatigue. Denies: Fever, Chills, Appetite HEENT: Reports: No Symptoms Pulmonary: Denies: Shortness of Breath, Cough, Wheezing Cardiovascular: Denies: Chest Pain, Palpitations, Edema, Lightheadedness Gastrointestinal: Reports: Decreased Appetite. Denies: Abdominal Pain, Constipation, Diarrhea, Nausea, Vomiting Genitourinary: Reports: Frequency. Denies: Burning, Pain, Hematuria Musculoskeletal: Reports: No Symptoms Skin: Reports: No Symptoms Neurological: Reports: Headache. Denies: Paresthesia, Syncope, Trouble Speaking, Difficulty Walking - Patient Data Vitals - Most Recent: Last Vital Signs Temp 98.9 F 09/24/20 15:55 Pulse 96 09/24/20 15:55 Resp 18 09/24/20 15:55 BP 139/92 H 09/24/20 15:55 Pulse Ox 97 09/24/20 15:55 Weight - Most Recent: 181 lb 9.6 oz I&O - Last 24 Hours: Intake & Output 09/24/20 09/24/20 09/24/20 06:59 14:59 22:59 Intake Total 300 Output Total 1800 Balance -1500 Lab Results Last 24 Hours: Laboratory Results - last 24 hr 09/23/20 09/24/20 09/24/20 Range/Units 21:03 07:10 07:33 Sodium 142 (136-145) mEq/L Potassium 3.0 L (3.5-5.0) mEq/L Chloride 104 (98-106) mEq/L Carbon Dioxide 28 (21-32) mmol/L BUN 11 (7-18) mg/dL Creatinine 1.1 (0.7-1.3) mg/dL Est Cr Clr Drug Dosing 49.24 mL/min Estimated GFR (MDRD) > 60 (>=60) mL/min Glucose 244 H D (75-99) mg/dL POC Glucose 166 H 216 H (75-105) mg/dl Calcium 8.5 (8.4-10.1) mg/dL 09/24/20 09/24/20 09/24/20 Range/Units 12:04 17:22 20:21 Sodium (136-145) mEq/L Potassium (3.5-5.0) mEq/L Chloride (98-106) mEq/L Carbon Dioxide (21-32) mmol/L BUN (7-18) mg/dL Creatinine (0.7-1.3) mg/dL Est Cr Clr Drug Dosing mL/min Estimated GFR (MDRD) (>=60) mL/min Glucose (75-99) mg/dL POC Glucose 299 H 217 H 261 H (75-105) mg/dl Calcium (8.4-10.1) mg/dL Med Orders - Current: Current Medications Acetaminophen (Tylenol) 650 mg PO Q4H PRN PRN Reason: Pain (Mild 1-3)/fever Last Admin: 09/24/20 19:59 Dose: 650 mg Documented by: Alogliptin Benzoate (Alogliptin) 12.5 mg PO DAILY [facility] Last Admin: 09/24/20 08:04 Dose: 12.5 mg Documented by: Amlodipine Besylate (Norvasc) 10 mg PO DAILY [facility] Last Admin: 09/24/20 08:03 Dose: 10 mg Documented by: Aspirin (Halfprin) 81 mg PO DAILY [facility] Last Admin: 09/24/20 08:03 Dose: 81 mg Documented by: Dextrose/Water (Dextrose 50% In Water) 50 ml IV ASDIRECTED PRN PRN Reason: Hypoglycemia Enoxaparin Sodium (Lovenox) 40 mg SUBCUT Q24H [facility] Last Admin: 09/24/20 19:59 Dose: 40 mg Documented by: Glucagon (Glucagen) 1 mg IM ASDIRECTED PRN PRN Reason: Hypoglycemia Potassium Chloride/Sodium Chloride (Normal Saline With 20 Meq Kcl) 1,000 mls @ 75 mls/hr IV ASDIRECTED [facility] Last Admin: 09/23/20 19:23 Dose: 75 mls/hr Documented by: Insulin Human Lispro (Humalog) 0 unit SUBCUT WITHMEALSANDBED [facility]; Protocol Last Admin: 09/24/20 20:24 Dose: 3 units Documented by: Lisinopril (Prinivil) 10 mg PO DAILY [facility] Last Admin: 09/24/20 08:04 Dose: 10 mg Documented by: Metformin HCl (Glucophage) 1,000 mg PO DAILY [facility] Last Admin: 09/24/20 08:02 Dose: 1,000 mg Documented by: Nitroglycerin (Nitro-Bid 2%) 1 gm TOP Q8H [facility] Last Admin: 09/24/20 17:30 Dose: Not Given Documented by: Pantoprazole Sodium (Protonix) 40 mg PO ACBREAKFAST [facility] Last Admin: 09/24/20 06:28 Dose: 40 mg Documented by: Potassium Chloride (Klor-Con 10) 20 meq PO DAILY [facility] Last Admin: 09/24/20 09:37 Dose: 20 meq Documented by: Simvastatin (Zocor) 40 mg PO BEDTIME [facility] Last Admin: 09/24/20 19:58 Dose: 40 mg Documented by: Tamsulosin HCl (Flomax) 0.8 mg PO DAILY [facility] Last Admin: 09/24/20 08:03 Dose: 0.8 mg Documented by: Discontinued Medications Clonidine HCl (Catapres) 0.1 mg PO NOW [facility] Stop: 09/24/20 12:12 Last Admin: 09/24/20 13:03 Dose: 0.1 mg Documented by: Potassium Chloride 40 meq/ (Premix) 100 mls @ 25 mls/hr IV ONETIME ONE Stop: 09/24/20 13:29 Last Admin: 09/24/20 09:38 Dose: 25 mls/hr Documented by: Sodium Chloride (Normal Saline) 250 mls @ 62.5 mls/hr IV ONETIME ONE Stop: 09/24/20 13:29 Last Admin: 09/24/20 09:38 Dose: 62.5 mls/hr Documented by: - Exam General: Alert, Oriented, No Acute Distress HEENT: Pupils Equal Neck: Supple Lungs: Clear to Auscultation, Normal Respiratory Effort. No: Crackles, Rales, Wheezing Cardiovascular: Regular Rate, Regular Rhythm, No Murmurs GI/Abdominal Exam: Normal Bowel Sounds, Soft, Non-Tender Extremities: Normal Inspection, No Pedal Edema Neurological: No New Focal Deficit Psy/Mental Status: Alert, Normal Affect, Normal Mood Sepsis Event Note - Evaluation Sepsis Screening Result: No Definite Risk - Focused Exam Vital Signs: Vital Signs Temp Pulse Resp BP BP Pulse Ox 09/24/20 15:55 98.9 F 96 18 139/92 H 97 09/24/20 13:39 99 172/102 H 09/24/20 13:03 197/112 H 09/24/20 12:00 97.1 F 88 16 197/112 H 97 - Problem List & Annotations (1) Hypertensive urgency SNOMED Code(s): 840448896 Code(s): I16.0 - HYPERTENSIVE URGENCY Status: Acute Current Visit: Yes (2) Hypokalemia SNOMED Code(s): 84509284 Code(s): E87.6 - HYPOKALEMIA Status: Acute Current Visit: Yes (3) Memory loss SNOMED Code(s): 19586512 Code(s): R41.3 - OTHER AMNESIA Status: Acute Current Visit: Yes (4) Type 2 diabetes mellitus SNOMED Code(s): 86090646 Code(s): E11.9 - TYPE 2 DIABETES MELLITUS WITHOUT COMPLICATIONS Status: Acute Current Visit: Yes Qualifiers: Diabetes mellitus penitentiary insulin use: without penitentiary use - Problem List Review Problem List Initiated/Reviewed/Updated: Yes - My Orders Last 24 Hours: My Active Orders 09/24/20 09:00 Nitroglycerin [Nitro-Bid 2%] 1 gm TOP Q8H Potassium Chloride [Klor-Con 10] 20 meq PO DAILY 09/27/20 13:36 VL Duplex Renal Comp [US] Routine - Plan Plan:: 09/24/2020 Patient continued to have resistant hypertension through out the night and this morning. Consulted with Dr. Leiva and patient was started on nitro paste. Blood pressure did not show much improvement and was given clonidine 0.1mg once. Blood pressure has gradually improved through out the day. Potassium did decline to 3.0 from 3.4 yesterday. He did receive potassium supplementation with IV fluids yesterday. Will continue with clonidine 0.1mg BID. Potassium replacement with 40mEq one time today. Will repeat labs in am.
[2020-09-25] MEDS: Nitroglycerin 2% Oint 1 GM UD Packet TOP SCH ×2 (01:13→12:16)
[2020-09-25] MEDS: Pantoprazole 40 MG Tab.CR PO SCH (07:00)
[2020-09-25] MEDS: Tamsulosin 0.4 MG Cap.ER PO SCH (08:05)
[2020-09-25] MEDS: cloNIDine 0.1 MG Tab PO SCH ×2 (08:05→19:52)
[2020-09-25] MEDS: metFORMIN 500 MG Tab PO SCH (08:06)
[2020-09-25] MEDS: Aspirin 81 MG Tab.EC PO SCH (08:06)
[2020-09-25] MEDS: amLODIPine 10 MG Tab PO SCH (08:06)
[2020-09-25] MEDS: Potassium Chloride 10 MEQ Tab.ER PO SCH (08:07)
[2020-09-25] MEDS: Lisinopril 10 MG Tab PO SCH (08:07)
[2020-09-25] MEDS: Insulin Lispro 100 Units/ML 3 ML Vial SUBCUT SCH ×4 (08:09→20:02)
--- NOTE | 2020-09-25 11:33 | PCM.PN ---
- General Info Date of Service: 09/25/20 Admission Dx/Problem (Free Text): Hypertensive urgency Hypokalemia Memory loss Functional Status: Reports: Pain Controlled, Tolerating Diet, Ambulating - Review of Systems General: Reports: Weakness, Fatigue, Malaise HEENT: Denies: Headaches, Sinus Congestion, Sore Throat, Visual Changes Pulmonary: Denies: Shortness of Breath, Cough Cardiovascular: Denies: Chest Pain, Edema, Lightheadedness Gastrointestinal: Denies: Abdominal Pain, Nausea, Vomiting Genitourinary: Reports: Frequency Musculoskeletal: Reports: No Symptoms Skin: Reports: No Symptoms Neurological: Reports: Weakness - Patient Data Vitals - Most Recent: Last Vital Signs Temp 96.4 F L 09/25/20 08:00 Pulse 64 09/25/20 08:00 Resp 16 09/25/20 08:00 BP 145/89 H 09/25/20 08:07 Pulse Ox 95 09/25/20 08:00 Weight - Most Recent: 181 lb 9.6 oz I&O - Last 24 Hours: Intake & Output 09/24/20 09/25/20 09/25/20 22:59 06:59 14:59 Intake Total 300 Output Total 200 Balance 100 Lab Results Last 24 Hours: Laboratory Results - last 24 hr 09/24/20 09/24/20 09/24/20 Range/Units 12:04 17:22 20:21 Sodium (136-145) mEq/L Potassium (3.5-5.0) mEq/L Chloride (98-106) mEq/L Carbon Dioxide (21-32) mmol/L BUN (7-18) mg/dL Creatinine (0.7-1.3) mg/dL Est Cr Clr Drug Dosing mL/min Estimated GFR (MDRD) (>=60) mL/min Glucose (75-99) mg/dL POC Glucose 299 H 217 H 261 H (75-105) mg/dl Calcium (8.4-10.1) mg/dL 09/25/20 09/25/20 Range/Units 07:10 08:00 Sodium 142 (136-145) mEq/L Potassium 3.9 D (3.5-5.0) mEq/L Chloride 108 H (98-106) mEq/L Carbon Dioxide 28 (21-32) mmol/L BUN 26 H D (7-18) mg/dL Creatinine 1.9 H D (0.7-1.3) mg/dL Est Cr Clr Drug Dosing 28.51 mL/min Estimated GFR (MDRD) 34 L (>=60) mL/min Glucose 251 H (75-99) mg/dL POC Glucose 234 H (75-105) mg/dl Calcium 8.7 (8.4-10.1) mg/dL Med Orders - Current: Current Medications Acetaminophen (Tylenol) 650 mg PO Q4H PRN PRN Reason: Pain (Mild 1-3)/fever Last Admin: 09/24/20 19:59 Dose: 650 mg Documented by: Alogliptin Benzoate (Alogliptin) 12.5 mg PO DAILY [facility] Last Admin: 09/25/20 08:06 Dose: 12.5 mg Documented by: Amlodipine Besylate (Norvasc) 10 mg PO DAILY [facility] Last Admin: 09/25/20 08:06 Dose: 10 mg Documented by: Aspirin (Halfprin) 81 mg PO DAILY [facility] Last Admin: 09/25/20 08:06 Dose: 81 mg Documented by: Clonidine HCl (Catapres) 0.1 mg PO BID [facility] Last Admin: 09/25/20 08:05 Dose: 0.1 mg Documented by: Dextrose/Water (Dextrose 50% In Water) 50 ml IV ASDIRECTED PRN PRN Reason: Hypoglycemia Enoxaparin Sodium (Lovenox) 40 mg SUBCUT Q24H [facility] Last Admin: 09/24/20 19:59 Dose: 40 mg Documented by: Glucagon (Glucagen) 1 mg IM ASDIRECTED PRN PRN Reason: Hypoglycemia Potassium Chloride/Sodium Chloride (Normal Saline With 20 Meq Kcl) 1,000 mls @ 75 mls/hr IV ASDIRECTED [facility] Last Admin: 09/23/20 19:23 Dose: 75 mls/hr Documented by: Insulin Human Lispro (Humalog) 0 unit SUBCUT WITHMEALSANDBED [facility]; Protocol Last Admin: 09/25/20 08:09 Dose: 2 units Documented by: Lisinopril (Prinivil) 10 mg PO DAILY [facility] Last Admin: 09/25/20 08:07 Dose: 10 mg Documented by: Metformin HCl (Glucophage) 1,000 mg PO DAILY [facility] Last Admin: 09/25/20 08:06 Dose: 1,000 mg Documented by: Nitroglycerin (Nitro-Bid 2%) 1 gm TOP Q8H [facility] Last Admin: 09/25/20 01:13 Dose: 1 gm Documented by: Pantoprazole Sodium (Protonix) 40 mg PO ACBREAKFAST [facility] Last Admin: 09/25/20 07:00 Dose: 40 mg Documented by: Potassium Chloride (Klor-Con 10) 20 meq PO DAILY [facility] Last Admin: 09/25/20 08:07 Dose: 20 meq Documented by: Simvastatin (Zocor) 40 mg PO BEDTIME [facility] Last Admin: 09/24/20 19:58 Dose: 40 mg Documented by: Tamsulosin HCl (Flomax) 0.8 mg PO DAILY [facility] Last Admin: 09/25/20 08:05 Dose: 0.8 mg Documented by: Discontinued Medications Clonidine HCl (Catapres) 0.1 mg PO NOW [facility] Stop: 09/24/20 12:12 Last Admin: 09/24/20 13:03 Dose: 0.1 mg Documented by: Potassium Chloride 40 meq/ (Premix) 100 mls @ 25 mls/hr IV ONETIME ONE Stop: 09/24/20 13:29 Last Admin: 09/24/20 09:38 Dose: 25 mls/hr Documented by: Sodium Chloride (Normal Saline) 250 mls @ 62.5 mls/hr IV ONETIME ONE Stop: 09/24/20 13:29 Last Admin: 09/24/20 09:38 Dose: 62.5 mls/hr Documented by: - Exam General: Alert, Oriented, Cooperative HEENT: Mucous Membr. Moist/[place] Neck: Supple Lungs: Clear to Auscultation, Normal Respiratory Effort Cardiovascular: Regular Rate, Regular Rhythm GI/Abdominal Exam: Normal Bowel Sounds, Soft, Non-Tender Extremities: Normal Inspection, No Pedal Edema Skin: Warm, Dry Neurological: No New Focal Deficit Sepsis Event Note - Evaluation Sepsis Screening Result: No Definite Risk - Focused Exam Vital Signs: Vital Signs Temp Pulse Resp BP BP Pulse Ox 09/25/20 08:07 145/89 H 09/25/20 08:06 145/89 H 09/25/20 08:05 145/89 H 09/25/20 08:00 96.4 F L 64 16 145/89 H 95 09/25/20 04:00 97.6 F 60 16 155/77 H 96 09/25/20 00:00 97.5 F 61 18 141/81 H 95 - Problem List & Annotations (1) Hypertensive urgency SNOMED Code(s): 972785962 Code(s): I16.0 - HYPERTENSIVE URGENCY Status: Acute Priority: High Current Visit: Yes (2) Hypokalemia SNOMED Code(s): 32509801 Code(s): E87.6 - HYPOKALEMIA Status: Acute Priority: High Current Visit: Yes (3) Memory loss SNOMED Code(s): 18354579 Code(s): R41.3 - OTHER AMNESIA Status: Acute Priority: High Current Visit: Yes - Problem List Review Problem List Initiated/Reviewed/Updated: Yes - Assessment Assessment:: Hypertensive Urgency hypokalemia - Plan Plan:: 09/24/2020 Patient continued to have resistant hypertension through out the night and this morning. Consulted with Dr. Leiva and patient was started on nitro paste. Blood pressure did not show much improvement and was given clonidine 0.1mg once. Blood pressure has gradually improved through out the day. Potassium did decline to 3.0 from 3.4 yesterday. He did receive potassium supplementation with IV fluids yesterday. Will continue with clonidine 0.1mg BID. Potassium replacement with 4 0mEq one time today. Will repeat labs in am. 09-25-2020 Patient feeling well today. Denies any chest pain, shortness of breath, nausea or abdominal pain. Does admit to urinary frequency. Was started on nitro paste but without any improvement yesterday so Clonidine was started. Blood pressure has improved, now 145/89 today. Potassium normal today at 3.9. Currently on oral potassium. Will stop nitro paste. Continue Lisinopril and Clonidine. Will continue labs in am.
[2020-09-25] MEDS: Simvastatin 40 MG Tab PO SCH (19:53)
[2020-09-25] MEDS: Enoxaparin 40 MG/0.4 ML Syringe SUBCUT SCH (20:03)
[2020-09-26] MEDS: Pantoprazole 40 MG Tab.CR PO SCH (06:05)
[2020-09-26] MEDS: Tamsulosin 0.4 MG Cap.ER PO SCH (08:07)
[2020-09-26] MEDS: cloNIDine 0.1 MG Tab PO SCH ×2 (08:07→19:58)
[2020-09-26] MEDS: Potassium Chloride 10 MEQ Tab.ER PO SCH (08:07)
[2020-09-26] MEDS: metFORMIN 500 MG Tab PO SCH (08:07)
[2020-09-26] MEDS: amLODIPine 10 MG Tab PO SCH (08:08)
[2020-09-26] MEDS: Lisinopril 10 MG Tab PO SCH (08:08)
[2020-09-26] MEDS: Aspirin 81 MG Tab.EC PO SCH (08:08)
[2020-09-26] MEDS: Insulin Lispro 100 Units/ML 3 ML Vial SUBCUT SCH ×4 (08:09→20:03)
[2020-09-26] MEDS ORDERED: Lisinopril 10 MG Tab PO ONE (10:47)
--- NOTE | 2020-09-26 10:55 | PCM.PN ---
- General Info Date of Service: 09/26/20 Admission Dx/Problem (Free Text): Hypertensive urgency Hypokalemia Memory loss Functional Status: Reports: Pain Controlled, Tolerating Diet, Ambulating - Review of Systems General: Reports: Weakness, Fatigue HEENT: Denies: Ear Pain, Sinus Congestion, Visual Changes Pulmonary: Denies: Shortness of Breath, Cough Cardiovascular: Denies: Chest Pain, Edema, Lightheadedness Gastrointestinal: Denies: Abdominal Pain, Nausea, Vomiting Genitourinary: Reports: No Symptoms Musculoskeletal: Reports: No Symptoms Skin: Reports: No Symptoms Neurological: Reports: Weakness - Patient Data Vitals - Most Recent: Last Vital Signs Temp 97.4 F 09/26/20 07:53 Pulse 56 L 09/26/20 07:53 Resp 14 09/26/20 07:53 BP 161/75 H 09/26/20 08:08 Pulse Ox 97 09/26/20 07:53 Weight - Most Recent: 181 lb 9.6 oz I&O - Last 24 Hours: Intake & Output 09/25/20 09/26/20 09/26/20 22:59 06:59 14:59 Intake Total 800 175 Output Total 600 200 Balance 200 -25 Lab Results Last 24 Hours: Laboratory Results - last 24 hr 09/25/20 09/25/20 09/25/20 Range/Units 12:12 17:17 19:51 Sodium (136-145) mEq/L Potassium (3.5-5.0) mEq/L Chloride (98-106) mEq/L Carbon Dioxide (21-32) mmol/L BUN (7-18) mg/dL Creatinine (0.7-1.3) mg/dL Est Cr Clr Drug Dosing mL/min Estimated GFR (MDRD) (>=60) mL/min Glucose (75-99) mg/dL POC Glucose 374 H 179 H 179 H (75-105) mg/dl Calcium (8.4-10.1) mg/dL 09/26/20 09/26/20 Range/Units 07:02 07:39 Sodium 141 (136-145) mEq/L Potassium 4.2 (3.5-5.0) mEq/L Chloride 105 (98-106) mEq/L Carbon Dioxide 29 (21-32) mmol/L BUN 23 H (7-18) mg/dL Creatinine 1.5 H (0.7-1.3) mg/dL Est Cr Clr Drug Dosing 36.11 mL/min Estimated GFR (MDRD) 45 L (>=60) mL/min Glucose 223 H (75-99) mg/dL POC Glucose 199 H (75-105) mg/dl Calcium 8.5 (8.4-10.1) mg/dL Med Orders - Current: Current Medications Acetaminophen (Tylenol) 650 mg PO Q4H PRN PRN Reason: Pain (Mild 1-3)/fever Last Admin: 09/24/20 19:59 Dose: 650 mg Documented by: Alogliptin Benzoate (Alogliptin) 12.5 mg PO DAILY [facility] Last Admin: 09/26/20 08:09 Dose: 12.5 mg Documented by: Amlodipine Besylate (Norvasc) 10 mg PO DAILY [facility] Last Admin: 09/26/20 08:08 Dose: 10 mg Documented by: Aspirin (Halfprin) 81 mg PO DAILY [facility] Last Admin: 09/26/20 08:08 Dose: 81 mg Documented by: Clonidine HCl (Catapres) 0.1 mg PO BID [facility] Last Admin: 09/26/20 08:07 Dose: 0.1 mg Documented by: Dextrose/Water (Dextrose 50% In Water) 50 ml IV ASDIRECTED PRN PRN Reason: Hypoglycemia Enoxaparin Sodium (Lovenox) 40 mg SUBCUT Q24H [facility] Last Admin: 09/25/20 20:03 Dose: 40 mg Documented by: Glucagon (Glucagen) 1 mg IM ASDIRECTED PRN PRN Reason: Hypoglycemia Potassium Chloride/Sodium Chloride (Normal Saline With 20 Meq Kcl) 1,000 mls @ 75 mls/hr IV ASDIRECTED [facility] Last Admin: 09/23/20 19:23 Dose: 75 mls/hr Documented by: Insulin Human Lispro (Humalog) 0 unit SUBCUT WITHMEALSANDBED [facility]; Protocol Last Admin: 09/26/20 08:09 Dose: 1 units Documented by: Lisinopril (Prinivil) 20 mg PO DAILY [facility] Lisinopril (Prinivil) 10 mg PO ONETIME ONE Stop: 09/26/20 10:48 Metformin HCl (Glucophage) 1,000 mg PO DAILY [facility] Last Admin: 09/26/20 08:07 Dose: 1,000 mg Documented by: Pantoprazole Sodium (Protonix) 40 mg PO ACBREAKFAST [facility] Last Admin: 09/26/20 06:05 Dose: 40 mg Documented by: Potassium Chloride (Klor-Con 10) 20 meq PO DAILY [facility] Last Admin: 09/26/20 08:07 Dose: 20 meq Documented by: Simvastatin (Zocor) 40 mg PO BEDTIME [facility] Last Admin: 09/25/20 19:53 Dose: 40 mg Documented by: Tamsulosin HCl (Flomax) 0.8 mg PO DAILY [facility] Last Admin: 09/26/20 08:07 Dose: 0.8 mg Documented by: Discontinued Medications Clonidine HCl (Catapres) 0.1 mg PO NOW [facility] Stop: 09/24/20 12:12 Last Admin: 09/24/20 13:03 Dose: 0.1 mg Documented by: Potassium Chloride 40 meq/ (Premix) 100 mls @ 25 mls/hr IV ONETIME ONE Stop: 09/24/20 13:29 Last Admin: 09/24/20 09:38 Dose: 25 mls/hr Documented by: Sodium Chloride (Normal Saline) 250 mls @ 62.5 mls/hr IV ONETIME ONE Stop: 09/24/20 13:29 Last Admin: 09/24/20 09:38 Dose: 62.5 mls/hr Documented by: Lisinopril (Prinivil) 10 mg PO DAILY [facility] Last Admin: 09/26/20 08:08 Dose: 10 mg Documented by: Nitroglycerin (Nitro-Bid 2%) 1 gm TOP Q8H [facility] Last Admin: 09/25/20 12:16 Dose: Not Given Documented by: - Exam General: Alert, Oriented (person and place), Cooperative HEENT: Mucous Membr. Moist/[place] Neck: Supple Lungs: Clear to Auscultation, Normal Respiratory Effort Cardiovascular: Bradycardia (heart rate does drop to the 40s while sleeping at night, asymptomatic) GI/Abdominal Exam: Normal Bowel Sounds, Soft, Non-Tender Extremities: Normal Inspection, Pedal Edema (trace edema in LLE) Skin: Warm, Dry Neurological: No New Focal Deficit Sepsis Event Note - Evaluation Sepsis Screening Result: No Definite Risk - Focused Exam Vital Signs: Vital Signs Temp Pulse Resp BP BP Pulse Ox 09/26/20 08:08 161/75 H 09/26/20 08:07 161/75 H 09/26/20 07:53 97.4 F 56 L 14 161/75 H 97 09/26/20 04:00 97.1 F 53 L 18 171/85 H 96 09/26/20 00:00 97.3 F 49 L 18 126/52 L 96 - Problem List & Annotations (1) Hypertensive urgency SNOMED Code(s): 216659603 Code(s): I16.0 - HYPERTENSIVE URGENCY Status: Acute Priority: High Current Visit: Yes (2) Hypokalemia SNOMED Code(s): 63165616 Code(s): E87.6 - HYPOKALEMIA Status: Acute Priority: High Current Visit: Yes (3) Memory loss SNOMED Code(s): 34838225 Code(s): R41.3 - OTHER AMNESIA Status: Acute Priority: High Current Visit: Yes - Problem List Review Problem List Initiated/Reviewed/Updated: Yes - My Orders Last 24 Hours: My Active Orders 09/26/20 10:47 lisinopriL [Prinivil] 10 mg PO ONETIME ONE 09/27/20 08:00 lisinopriL [Prinivil] 20 mg PO DAILY - Assessment Assessment:: Hypertensive Urgency hypokalemia - Plan Plan:: 09/24/2020 Patient continued to have resistant hypertension through out the night and this morning. Consulted with Dr. Leiva and patient was started on nitro paste. Blood pressure did not show much improvement and was given clonidine 0.1mg once. Blood pressure has gradually improved through out the day. Potassium did decline to 3.0 from 3.4 yesterday. He did receive potassium supplementation with IV fluids yesterday. Will continue with clonidine 0.1mg BID. Potassium replacement with 40mEq one time today. Will repeat labs in am. 09-25-2020 Patient feeling well today. Denies any chest pain, shortness of breath, nausea or abdominal pain. Does admit to urinary frequency. Was started on nitro paste but without any improvement yesterday so Clonidine was started. Blood pressure has improved, now 145/89 today. Potassium normal today at 3.9. Currently on oral potassium. Will stop nitro paste. Continue Lisinopril and Clonidine. Will continue labs in am. 09-26-2020 Patient doing well, up for shower this am. Still unsteady on his feet at times. Uses walker while here. No nausea/vomiting/shortness of breath. Appetite fair. Blood pressure tends to still run high with systolic 160-170s. Heart rate in the 40s during the night, asymptomatic when up. Creatinine is stable. Potassium good at 4.2. Will increase Lisinopril to 20 mg daily. Repeat labs in am. social service consult in am regarding discharge plan/needs.
[2020-09-26] MEDS: Simvastatin 40 MG Tab PO SCH (19:58)
[2020-09-26] MEDS: Enoxaparin 40 MG/0.4 ML Syringe SUBCUT SCH (20:04)
[2020-09-27] MEDS: Pantoprazole 40 MG Tab.CR PO SCH (06:30)
[2020-09-27] MEDS: cloNIDine 0.1 MG Tab PO SCH ×2 (08:04→19:54)
[2020-09-27] MEDS: Aspirin 81 MG Tab.EC PO SCH (08:04)
[2020-09-27] MEDS: Lisinopril 20 MG Tab PO SCH (08:05)
[2020-09-27] MEDS: metFORMIN 500 MG Tab PO SCH (08:05)
[2020-09-27] MEDS: Tamsulosin 0.4 MG Cap.ER PO SCH (08:05)
[2020-09-27] MEDS: Potassium Chloride 10 MEQ Tab.ER PO SCH (08:05)
[2020-09-27] MEDS: amLODIPine 10 MG Tab PO SCH (08:06)
[2020-09-27] MEDS: Insulin Lispro 100 Units/ML 3 ML Vial SUBCUT SCH ×4 (08:06→21:33)
[2020-09-27 16:54] LABS: PTT,PARTIAL THROMBOPLSTIN TIME 24.7 SEC (23.2-32.3)
[2020-09-27] MEDS ORDERED: Clopidogrel 75 MG Tab PO SCH (17:15)
[2020-09-27] MEDS: Simvastatin 40 MG Tab PO SCH (19:54)
[2020-09-27] MEDS: Enoxaparin 40 MG/0.4 ML Syringe SUBCUT SCH (21:43)
--- NOTE | 2020-09-27 22:32 | PCM.PN ---
- General Info Date of Service: 09/27/20 Admission Dx/Problem (Free Text): Hypertensive urgency Hypokalemia Memory loss Subjective Update: Tashi is an 80 yo male who was admitted to the hospital by Dr. Leiva with hypertensive urgency. Patient had presented to the clinic with his spouse to discuss a decline in memory. Symptoms were noted to be getting worse over the last 3-4 weeks prior to admission. Upon work up by Dr. Leiva, patient had significant elevation of his blood pressure and found to have hypokalemia. Patient was a direct admit from hospital. Patient is a known diabetic with elevated blood sugar readings and was started on sliding scale while in hospital. - Review of Systems General: Reports: No Symptoms Pulmonary: Reports: No Symptoms Cardiovascular: Reports: No Symptoms Gastrointestinal: Reports: No Symptoms Genitourinary: Reports: Incontinence Musculoskeletal: Reports: No Symptoms Neurological: Reports: Weakness. Denies: Headache, Difficulty Walking - Patient Data Vitals - Most Recent: Last Vital Signs Temp 97.9 F 09/27/20 19:56 Pulse 111 H 09/27/20 19:56 Resp 18 09/27/20 19:56 BP 92/52 L 09/27/20 19:56 Pulse Ox 95 09/27/20 19:56 Weight - Most Recent: 181 lb 9.6 oz I&O - Last 24 Hours: Intake & Output 09/27/20 09/27/20 09/27/20 06:59 14:59 22:59 Intake Total 710 1200 Output Total 300 850 Balance 410 350 Lab Results Last 24 Hours: Laboratory Results - last 24 hr 09/27/20 09/27/20 09/27/20 Range/Units 07:00 07:54 11:56 WBC (5.0-10.0) 10^3/uL RBC (4.50-6.00) 10^6/uL Hgb (14.0-18.0) g/dL Hct (40.0-54.0) % MCV (82.0-94.0) fL MCH (27.0-32.0) pg MCHC (33.0-38.0) g/dL RDW Coeff of Page (11.0-15.0) % Plt Count (150-400) 10^3/uL Neut % (Auto) (35-85) % Lymph % (Auto) (10-55) % Tompkins % (Auto) (0-16) % Eos % (Auto) (0-5) % Baso % (Auto) (0-3) % Neut # (Auto) (1.80-7.00) 10^3/uL Lymph # (Auto) (1.00-4.80) 10^3/uL Tompkins # (Auto) (0.00-0.80) 10^3/uL Eos # (Auto) (0.00-0.45) 10^3/uL Baso # (Auto) 10^3/uL PT (9.7-12.3) SEC INR (0.92-1.18) APTT (23.2-32.3) SEC Sodium 138 (136-145) mEq/L Potassium 4.2 (3.5-5.0) mEq/L Chloride 103 (98-106) mEq/L Carbon Dioxide 30 (21-32) mmol/L BUN 24 H (7-18) mg/dL Creatinine 1.4 H (0.7-1.3) mg/dL Est Cr Clr Drug Dosing 38.69 mL/min Estimated GFR (MDRD) 49 L (>=60) mL/min Glucose 218 H (75-99) mg/dL POC Glucose 189 H 211 H (75-105) mg/dl Calcium 8.3 L (8.4-10.1) mg/dL Creatine Kinase (35-232) U/L Troponin I (0.00-0.06) ng/mL Urine Color (YELLOW) Urine Appearance (CLEAR) Urine pH (4.5-8.0) Ur Specific [place] (1.003-1.020) Urine Protein (NEGATIVE) mg/dL Urine Glucose (UA) (NEGATIVE) mg/dL Urine Ketones (NEGATIVE) mg/dL Urine Occult Blood (NEGATIVE) Urine Nitrite (NEGATIVE) Urine Bilirubin (NEGATIVE) Urine Urobilinogen (0.2-1.0) EU/dL Ur Leukocyte Esterase (NEGATIVE) Urine RBC (0-5) /HPF Urine WBC (0-5) /HPF 09/27/20 09/27/20 09/27/20 Range/Units 14:24 16:09 16:24 WBC 9.1 (5.0-10.0) 10^3/uL RBC 4.91 (4.50-6.00) 10^6/uL Hgb 14.8 (14.0-18.0) g/dL Hct 42.4 (40.0-54.0) % MCV 86.4 (82.0-94.0) fL MCH 30.1 (27.0-32.0) pg MCHC 34.9 (33.0-38.0) g/dL RDW Coeff of Page 12.3 (11.0-15.0) % Plt Count 188 (150-400) 10^3/uL Neut % (Auto) 71.3 (35-85) % Lymph % (Auto) 19.5 (10-55) % Tompkins % (Auto) 6.6 (0-16) % Eos % (Auto) 2.3 (0-5) % Baso % (Auto) 0.3 (0-3) % Neut # (Auto) 6.49 (1.80-7.00) 10^3/uL Lymph # (Auto) 1.78 (1.00-4.80) 10^3/uL Tompkins # (Auto) 0.60 (0.00-0.80) 10^3/uL Eos # (Auto) 0.21 (0.00-0.45) 10^3/uL Baso # (Auto) 0.03 10^3/uL PT (9.7-12.3) SEC INR (0.92-1.18) APTT (23.2-32.3) SEC Sodium (136-145) mEq/L Potassium (3.5-5.0) mEq/L Chloride (98-106) mEq/L Carbon Dioxide (21-32) mmol/L BUN (7-18) mg/dL Creatinine (0.7-1.3) mg/dL Est Cr Clr Drug Dosing mL/min Estimated GFR (MDRD) (>=60) mL/min Glucose (75-99) mg/dL POC Glucose 176 H (75-105) mg/dl Calcium (8.4-10.1) mg/dL Creatine Kinase (35-232) U/L Troponin I (0.00-0.06) ng/mL Urine Color Yellow (YELLOW) Urine Appearance Clear (CLEAR) Urine pH 5.5 (4.5-8.0) Ur Specific [place] >= 1.030 H (1.003-1.020) Urine Protein Trace H (NEGATIVE) mg/dL Urine Glucose (UA) Negative (NEGATIVE) mg/dL Urine Ketones Negative (NEGATIVE) mg/dL Urine Occult Blood Trace-intact H (NEGATIVE) Urine Nitrite Negative (NEGATIVE) Urine Bilirubin Negative (NEGATIVE) Urine Urobilinogen 0.2 (0.2-1.0) EU/dL Ur Leukocyte Esterase Negative (NEGATIVE) Urine RBC 0-5 (0-5) /HPF Urine WBC Not seen (0-5) /HPF 09/27/20 09/27/20 09/27/20 Range/Units 16:24 16:24 17:58 WBC (5.0-10.0) 10^3/uL RBC (4.50-6.00) 10^6/uL Hgb (14.0-18.0) g/dL Hct (40.0-54.0) % MCV (82.0-94.0) fL MCH (27.0-32.0) pg MCHC (33.0-38.0) g/dL RDW Coeff of Page (11.0-15.0) % Plt Count (150-400) 10^3/uL Neut % (Auto) (35-85) % Lymph % (Auto) (10-55) % Tompkins % (Auto) (0-16) % Eos % (Auto) (0-5) % Baso % (Auto) (0-3) % Neut # (Auto) (1.80-7.00) 10^3/uL Lymph # (Auto) (1.00-4.80) 10^3/uL Tompkins # (Auto) (0.00-0.80) 10^3/uL Eos # (Auto) (0.00-0.45) 10^3/uL Baso # (Auto) 10^3/uL PT 11.2 (9.7-12.3) SEC INR 1.11 (0.92-1.18) APTT 24.7 (23.2-32.3) SEC Sodium (136-145) mEq/L Potassium (3.5-5.0) mEq/L Chloride (98-106) mEq/L Carbon Dioxide (21-32) mmol/L BUN (7-18) mg/dL Creatinine (0.7-1.3) mg/dL Est Cr Clr Drug Dosing mL/min Estimated GFR (MDRD) (>=60) mL/min Glucose (75-99) mg/dL POC Glucose 191 H (75-105) mg/dl Calcium (8.4-10.1) mg/dL Creatine Kinase 23 L (35-232) U/L Troponin I < 0.017 (0.00-0.06) ng/mL Urine Color (YELLOW) Urine Appearance (CLEAR) Urine pH (4.5-8.0) Ur Specific [place] (1.003-1.020) Urine Protein (NEGATIVE) mg/dL Urine Glucose (UA) (NEGATIVE) mg/dL Urine Ketones (NEGATIVE) mg/dL Urine Occult Blood (NEGATIVE) Urine Nitrite (NEGATIVE) Urine Bilirubin (NEGATIVE) Urine Urobilinogen (0.2-1.0) EU/dL Ur Leukocyte Esterase (NEGATIVE) Urine RBC (0-5) /HPF Urine WBC (0-5) /HPF 12/21/20 Range/Units 19:30 WBC (5.0-10.0) 10^3/uL RBC (4.50-6.00) 10^6/uL Hgb (14.0-18.0) g/dL Hct (40.0-54.0) % MCV (82.0-94.0) fL MCH (27.0-32.0) pg MCHC (33.0-38.0) g/dL RDW Coeff of Page (11.0-15.0) % Plt Count (150-400) 10^3/uL Neut % (Auto) (35-85) % Lymph % (Auto) (10-55) % Tompkins % (Auto) (0-16) % Eos % (Auto) (0-5) % Baso % (Auto) (0-3) % Neut # (Auto) (1.80-7.00) 10^3/uL Lymph # (Auto) (1.00-4.80) 10^3/uL Tompkins # (Auto) (0.00-0.80) 10^3/uL Eos # (Auto) (0.00-0.45) 10^3/uL Baso # (Auto) 10^3/uL PT (9.7-12.3) SEC INR (0.92-1.18) APTT (23.2-32.3) SEC Sodium (136-145) mEq/L Potassium (3.5-5.0) mEq/L Chloride (98-106) mEq/L Carbon Dioxide (21-32) mmol/L BUN (7-18) mg/dL Creatinine (0.7-1.3) mg/dL Est Cr Clr Drug Dosing mL/min Estimated GFR (MDRD) (>=60) mL/min Glucose (75-99) mg/dL POC Glucose 283 H (75-105) mg/dl Calcium (8.4-10.1) mg/dL Creatine Kinase (35-232) U/L Troponin I (0.00-0.06) ng/mL Urine Color (YELLOW) Urine Appearance (CLEAR) Urine pH (4.5-8.0) Ur Specific [place] (1.003-1.020) Urine Protein (NEGATIVE) mg/dL Urine Glucose (UA) (NEGATIVE) mg/dL Urine Ketones (NEGATIVE) mg/dL Urine Occult Blood (NEGATIVE) Urine Nitrite (NEGATIVE) Urine Bilirubin (NEGATIVE) Urine Urobilinogen (0.2-1.0) EU/dL Ur Leukocyte Esterase (NEGATIVE) Urine RBC (0-5) /HPF Urine WBC (0-5) /HPF Med Orders - Current: Current Medications Acetaminophen (Tylenol) 650 mg PO Q4H PRN PRN Reason: Pain (Mild 1-3)/fever Last Admin: 09/24/20 19:59 Dose: 650 mg Documented by: Alogliptin Benzoate (Alogliptin) 12.5 mg PO DAILY [facility] Last Admin: 09/27/20 08:04 Dose: 12.5 mg Documented by: Amlodipine Besylate (Norvasc) 10 mg PO DAILY [facility] Last Admin: 09/27/20 08:06 Dose: 10 mg Documented by: Aspirin (Halfprin) 81 mg PO DAILY [facility] Last Admin: 09/27/20 08:04 Dose: 81 mg Documented by: Clonidine HCl (Catapres) 0.1 mg PO BID [facility] Last Admin: 09/27/20 19:54 Dose: Not Given Documented by: Clopidogrel Bisulfate (Plavix) 75 mg PO DAILY@1700 [facility] Last Admin: 09/27/20 19:54 Dose: 75 mg Documented by: Dextrose/Water (Dextrose 50% In Water) 50 ml IV ASDIRECTED PRN PRN Reason: Hypoglycemia Enoxaparin Sodium (Lovenox) 40 mg SUBCUT Q24H [facility] Last Admin: 09/27/20 21:43 Dose: 40 mg Documented by: Glucagon (Glucagen) 1 mg IM ASDIRECTED PRN PRN Reason: Hypoglycemia Potassium Chloride/Sodium Chloride (Normal Saline With 20 Meq Kcl) 1,000 mls @ 75 mls/hr IV ASDIRECTED [facility] Last Admin: 09/23/20 19:23 Dose: 75 mls/hr Documented by: Insulin Human Lispro (Humalog) 0 unit SUBCUT WITHMEALSANDBED [facility]; Protocol Last Admin: 09/27/20 21:33 Dose: Not Given Documented by: Lisinopril (Prinivil) 20 mg PO DAILY [facility] Last Admin: 09/27/20 08:05 Dose: 20 mg Documented by: Metformin HCl (Glucophage) 1,000 mg PO DAILY [facility] Last Admin: 09/27/20 08:05 Dose: 1,000 mg Documented by: Pantoprazole Sodium (Protonix) 40 mg PO ACBREAKFAST [facility] Last Admin: 09/27/20 06:30 Dose: 40 mg Documented by: Potassium Chloride (Klor-Con 10) 20 meq PO DAILY [facility] Last Admin: 09/27/20 08:05 Dose: 20 meq Documented by: Simvastatin (Zocor) 40 mg PO BEDTIME [facility] Last Admin: 09/27/20 19:54 Dose: 40 mg Documented by: Tamsulosin HCl (Flomax) 0.8 mg PO DAILY [facility] Last Admin: 09/27/20 08:05 Dose: 0.8 mg Documented by: Discontinued Medications Clonidine HCl (Catapres) 0.1 mg PO NOW STA Stop: 09/24/20 12:12 Last Admin: 09/24/20 13:03 Dose: 0.1 mg Documented by: Potassium Chloride 40 meq/ (Premix) 100 mls @ 25 mls/hr IV ONETIME ONE Stop: 09/24/20 13:29 Last Admin: 09/24/20 09:38 Dose: 25 mls/hr Documented by: Sodium Chloride (Normal Saline) 250 mls @ 62.5 mls/hr IV ONETIME ONE Stop: 09/24/20 13:29 Last Admin: 09/24/20 09:38 Dose: 62.5 mls/hr Documented by: Lisinopril (Prinivil) 10 mg PO DAILY [facility] Last Admin: 09/26/20 08:08 Dose: 10 mg Documented by: Lisinopril (Prinivil) 10 mg PO ONETIME ONE Stop: 09/26/20 10:48 Last Admin: 09/26/20 11:59 Dose: 10 mg Documented by: Nitroglycerin (Nitro-Bid 2%) 1 gm TOP Q8H [facility] Last Admin: 09/25/20 12:16 Dose: Not Given Documented by: - Exam General: Alert, Oriented, Cooperative, No Acute Distress Lungs: Clear to Auscultation, Normal Respiratory Effort Cardiovascular: Regular Rate, Regular Rhythm, No Murmurs GI/Abdominal Exam: Normal Bowel Sounds, Soft, Non-Tender, No Distention Extremities: Pedal Edema (trace in left lower extremity) Skin: Warm, Dry, Intact Neurological: No New Focal Deficit Psy/Mental Status: Alert, Normal Affect, Normal Mood Physical Findings Comments:: Objective findings is from initial evaluation in am. Sepsis Event Note - Evaluation Sepsis Screening Result: No Definite Risk - Focused Exam Vital Signs: Vital Signs Temp Pulse Resp BP BP Pulse Ox 09/27/20 19:56 97.9 F 111 H 18 92/52 L 95 09/27/20 19:54 92/52 L 09/27/20 16:00 98.0 F 89 18 124/71 96 09/27/20 11:47 71 09/27/20 10:55 97.8 F 61 16 147/76 H 98 - Problem List & Annotations (1) Hypertensive urgency SNOMED Code(s): 325769768 Code(s): I16.0 - HYPERTENSIVE URGENCY Status: Resolved Priority: High Current Visit: Yes (2) Hypokalemia SNOMED Code(s): 51923514 Code(s): E87.6 - HYPOKALEMIA Status: Resolved Priority: High Current Visit: Yes (3) Memory loss SNOMED Code(s): 04513062 Code(s): R41.3 - OTHER AMNESIA Status: Chronic Priority: High Current Visit: Yes (4) Type 2 diabetes mellitus SNOMED Code(s): 55682109 Code(s): E11.9 - TYPE 2 DIABETES MELLITUS WITHOUT COMPLICATIONS Status: Chronic Current Visit: Yes Qualifiers: Diabetes mellitus fdc insulin use: without intermodal dispatcher use (5) Transient ischemic attack SNOMED Code(s): 409841096 Code(s): G45.9 - TRANSIENT CEREBRAL ISCHEMIC ATTACK, UNSPECIFIED Status: Acute Current Visit: Yes - Problem List Review Problem List Initiated/Reviewed/Updated: Yes - My Orders Last 24 Hours: My Active Orders 09/27/20 13:00 Ready for Discharge [RC] PER UNIT ROUTINE 09/27/20 15:53 Head wo Cont [CT] Routine - Assessment Assessment:: Hypertensive Urgency - corrected TIA - new onset Hypokalemia - corrected - Plan Plan:: 09/24/2020 Patient continued to have resistant hypertension through out the night and this morning. Consulted with Dr. Leiva and patient was started on nitro paste. Blood pressure did not show much improvement and was given clonidine 0.1mg once. Blood pressure has gradually improved through out the day. Potassium did decline to 3.0 from 3.4 yesterday. He did receive potassium supplementation with IV fluids yesterday. Will continue with clonidine 0.1mg BID. Potassium replacement with 40mEq one time today. Will repeat labs in am. 09-25-2020 Patient feeling well today. Denies any chest pain, shortness of breath, nausea or abdominal pain. Does admit to urinary frequency. Was started on nitro paste but without any improvement yesterday so Clonidine was started. Blood pressure has improved, now 145/89 today. Potassium normal today at 3.9. Currently on oral potassium. Will stop nitro paste. Continue Lisinopril and Clonidine. Will continue labs in am. 09-26-2020 Patient doing well, up for shower this am. Still unsteady on his feet at times. Uses walker while here. No nausea/vomiting/shortness of breath. Appetite fair. Blood pressure tends to still run high with systolic 160-170s. Heart rate in the 40s during the night, asymptomatic when up. Creatinine is stable. Potassium good at 4.2. Will increase Lisinopril to 20 mg daily. Repeat labs in am. social service consult in am regarding discharge plan/needs. 09/27/2020 Bill was doing well this am. Patient was sitting in recliner and actively engaging in normal conversation. States he was feeling a lot better and didn't have any complaints. Blood pressure had significantly improved since admit. Potassium continues to be within normal limits at 4.2. retirement consult discussed and declined at this time as patient and his are currently waiting for placement at the [facility]. agreed with home health services. Patient denied any complaints or concerns at this time. Initially had planned for discharge in the afternoon. Update 09/27/2020 Patient was being prepared for discharge this afternoon. Nursing staff noticed patient to have increased confusion, slurred speech and was unable to move right lower extremity with right upper extremity weakness. Proceeded with CT of the brain which did not show any hemorrhagic or ischemic events. Dr. Leiva consulted and did evaluate patient as well. Patient appeared to have movement of the right upper and lower extremity upon evaluation; however did show complete neglect to his right side. Speech did not appear to be slurred. Called his (Dinora) to discuss recent events and that he will not be discharged at this time. Dinora verbalized understanding and will discuss with Dr. Leiva tomorrow as she has an appointment in the clinic. Repeat labs were unremarkable. Blood sugar stable, no signs of hypoglycemia. Urinalysis via straight cath negative for UTI. EKG completed. Dr. Leiva advised starting clopidogrel 75mg daily with concerns of TIA.
[2020-09-27] MEDS: Apixaban 5 MG Tab PO SCH (23:30)
[2020-09-28] MEDS: Potassium Chloride 10 MEQ Tab.ER PO SCH (07:35)
[2020-09-28] MEDS: cloNIDine 0.1 MG Tab PO SCH ×2 (07:36→19:31)
[2020-09-28] MEDS: metFORMIN 500 MG Tab PO SCH (07:36)
[2020-09-28] MEDS: amLODIPine 10 MG Tab PO SCH (07:37)
[2020-09-28] MEDS: Apixaban 5 MG Tab PO SCH ×2 (07:37→19:31)
[2020-09-28] MEDS: Pantoprazole 40 MG Tab.CR PO SCH (07:37)
[2020-09-28] MEDS: Lisinopril 20 MG Tab PO SCH (07:37)
[2020-09-28] MEDS: Tamsulosin 0.4 MG Cap.ER PO SCH (07:37)
[2020-09-28] MEDS: Aspirin 81 MG Tab.EC PO SCH (07:37)
[2020-09-28] MEDS: Insulin Lispro 100 Units/ML 3 ML Vial SUBCUT SCH ×4 (07:40→20:43)
[2020-09-28] MEDS ORDERED: LORazepam 2 MG/ML Syringe IVPUSH PRN (18:27)
[2020-09-28] MEDS: Acetaminophen 325 MG Tab PO PRN (19:31)
[2020-09-28] MEDS: Simvastatin 40 MG Tab PO SCH (19:31)
[2020-09-29] MEDS: Pantoprazole 40 MG Tab.CR PO SCH (06:42)
[2020-09-29] MEDS: Potassium Chloride 10 MEQ Tab.ER PO SCH (07:40)
[2020-09-29] MEDS: Aspirin 81 MG Tab.EC PO SCH (07:41)
[2020-09-29] MEDS: Tamsulosin 0.4 MG Cap.ER PO SCH (07:41)
[2020-09-29] MEDS: metFORMIN 500 MG Tab PO SCH (07:42)
[2020-09-29] MEDS: cloNIDine 0.1 MG Tab PO SCH (07:42)
[2020-09-29] MEDS: Apixaban 5 MG Tab PO SCH (07:43)
[2020-09-29] MEDS: Lisinopril 20 MG Tab PO SCH (07:43)
[2020-09-29] MEDS: amLODIPine 10 MG Tab PO SCH (07:43)
[2020-09-29] MEDS: Insulin Lispro 100 Units/ML 3 ML Vial SUBCUT SCH ×2 (07:47→12:02)
--- NOTE | 2020-09-29 08:19 | PCM.PN ---
- General Info Date of Service: 09/28/20 Admission Dx/Problem (Free Text): Hypertensive urgency Hypokalemia Memory loss Subjective Update: Tashi is an 80 yo male who was admitted to the hospital by Dr. Leiva with hypertensive urgency. Patient had presented to the clinic with his spouse to discuss a decline in memory. Symptoms were noted to be getting worse over the last 3-4 weeks prior to admission. Upon work up by Dr. Leiva, patient had significant elevation of his blood pressure and found to have hypokalemia. Patient was a direct admit from hospital. Patient is a known diabetic with elevated blood sugar readings and was started on sliding scale while in hospital. Patient was being prepared for discharge yesterday afternoon. Nursing staff noticed patient to have increased confusion, slurred speech and was unable to move right lower extremity with right upper extremity weakness. Proceeded with CT of the brain which did not show any hemorrhagic or ischemic events. Dr. Leiva consulted and did evaluate patient as well. Patient appeared to have movement of the right upper and lower extremity upon evaluation; however did show complete neglect to his right side. Speech did not appear to be slurred. Called his (Dinora) to discuss recent events and that he will not be discharged at this time. Functional Status: Reports: Pain Controlled, Tolerating Diet - Review of Systems General: Reports: No Symptoms HEENT: Reports: No Symptoms Pulmonary: Reports: No Symptoms Cardiovascular: Reports: No Symptoms Gastrointestinal: Reports: No Symptoms Genitourinary: Reports: No Symptoms Musculoskeletal: Reports: No Symptoms Skin: Reports: No Symptoms Neurological: Reports: No Symptoms - Patient Data Vitals - Most Recent: Last Vital Signs Temp 97.9 F 09/29/20 07:38 Pulse 60 09/29/20 07:38 Resp 20 09/29/20 07:38 BP 176/96 H 09/29/20 07:43 Pulse Ox 93 L 09/29/20 07:38 Weight - Most Recent: 181 lb 9.6 oz I&O - Last 24 Hours: Intake & Output 09/28/20 09/29/20 09/29/20 22:59 06:59 14:59 Intake Total 300 150 Balance 300 150 Lab Results Last 24 Hours: Laboratory Results - last 24 hr 09/28/20 09/28/20 09/28/20 Range/Units 11:32 17:17 19:38 POC Glucose 215 H 199 H 208 H (75-105) mg/dl 09/29/20 Range/Units 07:37 POC Glucose 158 H (75-105) mg/dl Med Orders - Current: Current Medications Acetaminophen (Tylenol) 650 mg PO Q4H PRN PRN Reason: Pain (Mild 1-3)/fever Last Admin: 09/28/20 19:31 Dose: 650 mg Documented by: Alogliptin Benzoate (Alogliptin) 12.5 mg PO DAILY [facility] Last Admin: 09/29/20 07:41 Dose: 12.5 mg Documented by: Amlodipine Besylate (Norvasc) 10 mg PO DAILY [facility] Last Admin: 09/29/20 07:43 Dose: 10 mg Documented by: Apixaban (Eliquis) 5 mg PO BID [facility] Last Admin: 09/29/20 07:43 Dose: 5 mg Documented by: Aspirin (Halfprin) 81 mg PO DAILY [facility] Last Admin: 09/29/20 07:41 Dose: 81 mg Documented by: Clonidine HCl (Catapres) 0.1 mg PO BID [facility] Last Admin: 09/29/20 07:42 Dose: 0.1 mg Documented by: Dextrose/Water (Dextrose 50% In Water) 50 ml IV ASDIRECTED PRN PRN Reason: Hypoglycemia Glucagon (Glucagen) 1 mg IM ASDIRECTED PRN PRN Reason: Hypoglycemia Insulin Human Lispro (Humalog) 0 unit SUBCUT WITHMEALSANDBED [facility]; Protocol Last Admin: 09/29/20 07:47 Dose: 1 units Documented by: Lisinopril (Prinivil) 20 mg PO DAILY [facility] Last Admin: 09/29/20 07:43 Dose: 20 mg Documented by: Lorazepam (Ativan) 1 mg IVPUSH Q6H PRN PRN Reason: Anxiety Metformin HCl (Glucophage) 1,000 mg PO DAILY [facility] Last Admin: 09/29/20 07:42 Dose: 1,000 mg Documented by: Pantoprazole Sodium (Protonix) 40 mg PO ACBREAKFAST [facility] Last Admin: 09/29/20 06:42 Dose: 40 mg Documented by: Potassium Chloride (Klor-Con 10) 20 meq PO DAILY [facility] Last Admin: 09/29/20 07:40 Dose: 20 meq Documented by: Simvastatin (Zocor) 40 mg PO BEDTIME [facility] Last Admin: 09/28/20 19:31 Dose: 40 mg Documented by: Tamsulosin HCl (Flomax) 0.8 mg PO DAILY [facility] Last Admin: 09/29/20 07:41 Dose: 0.8 mg Documented by: Discontinued Medications Clonidine HCl (Catapres) 0.1 mg PO NOW [facility] Stop: 09/24/20 12:12 Last Admin: 09/24/20 13:03 Dose: 0.1 mg Documented by: Clopidogrel Bisulfate (Plavix) 75 mg PO DAILY@1700 [facility] Last Admin: 09/27/20 19:54 Dose: 75 mg Documented by: Enoxaparin Sodium (Lovenox) 40 mg SUBCUT Q24H [facility] Last Admin: 09/27/20 21:43 Dose: 40 mg Documented by: Potassium Chloride/Sodium Chloride (Normal Saline With 20 Meq Kcl) 1,000 mls @ 75 mls/hr IV ASDIRECTED [facility] Last Admin: 09/23/20 19:23 Dose: 75 mls/hr Documented by: Potassium Chloride 40 meq/ (Premix) 100 mls @ 25 mls/hr IV ONETIME ONE Stop: 09/24/20 13:29 Last Admin: 09/24/20 09:38 Dose: 25 mls/hr Documented by: Sodium Chloride (Normal Saline) 250 mls @ 62.5 mls/hr IV ONETIME ONE Stop: 09/24/20 13:29 Last Admin: 09/24/20 09:38 Dose: 62.5 mls/hr Documented by: Lisinopril (Prinivil) 10 mg PO DAILY [facility] Last Admin: 09/26/20 08:08 Dose: 10 mg Documented by: Lisinopril (Prinivil) 10 mg PO ONETIME ONE Stop: 09/26/20 10:48 Last Admin: 09/26/20 11:59 Dose: 10 mg Documented by: Nitroglycerin (Nitro-Bid 2%) 1 gm TOP Q8H [facility] Last Admin: 09/25/20 12:16 Dose: Not Given Documented by: - Exam General: Alert, Oriented (x 2), Cooperative, No Acute Distress Lungs: Clear to Auscultation, Normal Respiratory Effort Cardiovascular: Regular Rate, Regular Rhythm, No Murmurs. No: Irregular Rhythm GI/Abdominal Exam: Normal Bowel Sounds, Soft, No Distention Extremities: Normal Inspection, No Pedal Edema Skin: Warm, Dry, Intact Neurological: No New Focal Deficit, Normal Speech, Strength Equal Bilateral, Sensation Intact Psy/Mental Status: Alert, Normal Affect, Normal Mood Sepsis Event Note - Evaluation Sepsis Screening Result: No Definite Risk - Focused Exam Vital Signs: Vital Signs Temp Pulse Resp BP BP Pulse Ox 09/29/20 07:43 176/96 H 09/29/20 07:42 176/96 H 09/29/20 07:38 97.9 F 60 20 176/96 H 93 L 09/29/20 04:00 99.3 F 76 18 166/90 H 98 09/28/20 23:17 100.6 F 84 18 153/88 H 94 L - Problem List & Annotations (1) Hypertensive urgency SNOMED Code(s): 574396627 Code(s): I16.0 - HYPERTENSIVE URGENCY Status: Resolved Priority: High Current Visit: Yes (2) Hypokalemia SNOMED Code(s): 45958354 Code(s): E87.6 - HYPOKALEMIA Status: Resolved Priority: High Current Visit: Yes (3) Memory loss SNOMED Code(s): 77750986 Code(s): R41.3 - OTHER AMNESIA Status: Chronic Priority: High Current Visit: Yes (4) Type 2 diabetes mellitus SNOMED Code(s): 64411690 Code(s): E11.9 - TYPE 2 DIABETES MELLITUS WITHOUT COMPLICATIONS Status: Chronic Current Visit: Yes Qualifiers: Diabetes mellitus longwall foreman insulin use: without longwall foreman use (5) Transient ischemic attack SNOMED Code(s): 932674804 Code(s): G45.9 - TRANSIENT CEREBRAL ISCHEMIC ATTACK, UNSPECIFIED Status: Acute Current Visit: Yes (6) New onset a-fib SNOMED Code(s): 78174303 Code(s): I48.91 - UNSPECIFIED ATRIAL FIBRILLATION Status: Acute Current Visit: Yes - Problem List Review Problem List Initiated/Reviewed/Updated: Yes - My Orders Last 24 Hours: My Active Orders 09/28/20 18:27 LORazepam [Ativan] 1 mg IVPUSH Q6H PRN - Assessment Assessment:: Hypertensive Urgency - corrected TIA - new onset Hypokalemia - corrected - Plan Plan:: 09/24/2020 Patient continued to have resistant hypertension through out the night and this morning. Consulted with Dr. Leiva and patient was started on nitro paste. Blood pressure did not show much improvement and was given clonidine 0.1mg once. Blood pressure has gradually improved through out the day. Potassium did decline to 3.0 from 3.4 yesterday. He did receive potassium supplementation with IV fluids yesterday. Will continue with clonidine 0.1mg BID. Potassium replacement with 40mEq one time today. Will repeat labs in am. 09-25-2020 Patient feeling well today. Denies any chest pain, shortness of breath, nausea or abdominal pain. Does admit to urinary frequency. Was started on nitro paste but without any improvement yesterday so Clonidine was started. Blood pressure has improved, now 145/89 today. Potassium normal today at 3.9. Currently on oral potassium. Will stop nitro paste. Continue Lisinopril and Clonidine. Will continue labs in am. 09-26-2020 Patient doing well, up for shower this am. Still unsteady on his feet at times. Uses walker while here. No nausea/vomiting/shortness of breath. Appetite fair. Blood pressure tends to still run high with systolic 160-170s. Heart rate in the 40s during the night, asymptomatic when up. Creatinine is stable. Potassium good at 4.2. Will increase Lisinopril to 20 mg daily. Repeat labs in am. social service consult in am regarding discharge plan/needs. 09/27/2020 Bill was doing well this am. Patient was sitting in recliner and actively engaging in normal conversation. States he was feeling a lot better and didn't have any complaints. Blood pressure had significantly improved since admit. Potassium continues to be within normal limits at 4.2. prison consult discussed and declined at this time as patient and his are currently waiting for placement at the [facility]. agreed with home health services. Patient denied any complaints or concerns at this time. Initially had planned for discharge in the afternoon. Update 09/27/2020 Patient was being prepared for discharge this afternoon. Nursing staff noticed patient to have increased confusion, slurred speech and was unable to move right lower extremity with right upper extremity weakness. Proceeded with CT of the brain which did not show any hemorrhagic or ischemic events. Dr. Leiva consulted and did evaluate patient as well. Patient appeared to have movement of the right upper and lower extremity upon evaluation; however did show complete neglect to his right side. Speech did not appear to be slurred. Called his (Dinora) to discuss recent events and that he will not be discharged at this time. Dinora verbalized understanding and will discuss with Dr. Leiva tomorrow as she has an appointment in the clinic. Repeat labs were unremarkable. Blood sugar stable, no signs of hypoglycemia. Urinalysis via straight cath negative for UTI. EKG completed. Dr. Leiva advised starting clopidogrel 75mg daily with concerns of TIA. 09/28/2020 Bill appears to be a lot better this morning. Denies any concerns this morning. Answering all questions appropriately. Patient has been up ambulating to the bathroom and has no further right sided weakness. Patient was started on Eliquis yesterday evening. Plavix and Lovenox d/c'd. Patient converted to sinus rhythm last night on his own. Currently not taking anything for rate control as it is controlled.
[2020-09-29 12:10] VITALS: BP 143/72; PULSE 61
--- NOTE | 2020-09-29 23:16 | PCM.DCSUM1 ---
Discharge Summary - Hospital Course HPI Initial Comments: Tashi is an 80 yo male who was admitted to the hospital by Dr. Leiva on the 23 of September with a hypertensive urgency. Patient had presented to the clinic with his spouse to discuss a decline in memory. Symptoms were noted to be getting worse over the last 3-4 weeks. Upon work up by Dr. Leiva, patient had significant elevation of his blood pressure and found to have hypokalemia. Patient was a direct admit to the hospital for clinic. Patient is a known d iabetic with elevated blood sugar readings and was started on sliding scale insulin while in hospital. Timoteo was doing well while in acute stay. Over the course of the first few days he was feeling a lot better and didn't have any complaints. Blood pressure had significantly improved since admit. Patient was started on Clonidine 0.1mg BID, Lisinopril increased to 20mg daily and Norvasc 10mg daily. Potassium had corrected as well to 4.2. senior living consult discussed and declined at that time as patient and his were currently waiting for placement at the [facility]. agreed with home health services. Patient denied any complaints or concerns at this time. Initially had planned for discharge in the afternoon. Patient was being prepared for discharge yesterday afternoon. Nursing staff noticed patient to have increased confusion, slurred speech and was unable to move right lower extremity with right upper extremity weakness. Proceeded with CT of the brain which did not show any hemorrhagic or ischemic events. Dr. Leiva consulted and did evaluate patient at that time. Patient appeared to have movement of the right upper and lower extremity upon evaluation; however did sh ow complete neglect to his right side. Speech did not appear to be slurred. Called his (Dinora) to discuss recent events and that he will not be discharged at this time. Yesterday Timoteo appeared again to be a lot better in the morning. Denies any concerns. Continued to have confusion in regards to date and place. Otherwise was answering all questions appropriately. Patient has been up ambulating to the bathroom and had no further right sided weakness. During the night it was captured on telemetry that Timoteo went into atrial fibrillation but had converted to normal sinus rhythm shortly after. Dr. Leiva was again consulted and concerned of thrombotic stroke secondary to paroxysmal atrial fibrillation. Patient was started on Eliquis that evening. Plavix and Lovenox were d/c'd. Aayush has had a normal rate and rhythm since isolated episode. Discussed beta vangie or Cardizem to prevent further episodes. Spoke with today in regards to Timoteo's current status and did not feel patient was a candidate at this time for independent living. Dinora was in agreement as she is unable to fully care for Timoteo at this time. Diagnosis: Stroke: No - Discharge Data Discharge Date: 09/29/20 Discharge Disposition: DC/Tfer W/I Hosp To Swing 61 Condition: Fair - Referral to Home Health Date of Face to Face Encounter: 09/27/20 Reason for Homebound Status: Inability to drive due to increased confusion, decreased activity tolerance, high fall risk and increased weakness. Primary Care Physician: Alejandro Leiva MD Skilled Need: Fpc for medication management and blood pressure due to recent medication changes. Physical therapy for strengthening/ambulation. Occupational therapy for ADL's - Discharge Diagnosis/Problem(s) (1) Hypertensive urgency SNOMED Code(s): 315461917 ICD Code: I16.0 - HYPERTENSIVE URGENCY Status: Resolved Priority: High (2) Hypokalemia SNOMED Code(s): 65175527 ICD Code: E87.6 - HYPOKALEMIA Status: Resolved Priority: High (3) Memory loss SNOMED Code(s): 08715413 ICD Code: R41.3 - OTHER AMNESIA Status: Chronic Priority: High (4) Type 2 diabetes mellitus SNOMED Code(s): 52485699 ICD Code: E11.9 - TYPE 2 DIABETES MELLITUS WITHOUT COMPLICATIONS Status: Chronic Qualifiers: Diabetes mellitus alf insulin use: without alf use (5) Transient ischemic attack SNOMED Code(s): 375917600 ICD Code: G45.9 - TRANSIENT CEREBRAL ISCHEMIC ATTACK, UNSPECIFIED Status: Acute (6) New onset a-fib SNOMED Code(s): 71722231 ICD Code: I48.91 - UNSPECIFIED ATRIAL FIBRILLATION Status: Acute (7) Unable to care for self SNOMED Code(s): 857599614, 769395320 ICD Code: Z78.9 - OTHER SPECIFIED HEALTH STATUS Status: Acute - Patient Summary/Data Consults: Consultations 09/24/20 07:21 Consult to Physical Therapy [PT Evaluation and Treatment] [CONS] Routine 09/26/20 10:55 Consult to Case Management/Sack Department Supervisor [CONS] Routine - Patient Instructions Diet: Diabetic Diet Activity: As Tolerated - Discharge Plan *PRESCRIPTION DRUG MONITORING PROGRAM REVIEWED*: Not Applicable *COPY OF PRESCRIPTION DRUG MONITORING REPORT IN PATIENT EMMA: Not Applicable Prescriptions/Med Rec: Potassium Chloride [Klor-Con 10] 20 meq PO DAILY #30 tab.er lisinopriL [Prinivil] 20 mg PO DAILY #30 tablet Home Medications: Home Meds Aspirin [Halfprin] 81 mg PO DAILY 01/13/16 [History] Simvastatin 40 mg PO BEDTIME 01/13/16 [History] Tamsulosin HCl 0.8 mg PO DAILY 01/13/16 [History] amLODIPine Besylate [Amlodipine Besylate] 10 mg PO DAILY 01/13/16 [History] Pantoprazole Sodium [Protonix] 40 mg PO DAILY 02/17/20 [History] metFORMIN HCl [Metformin HCl] 1,000 mg PO BID 02/17/20 [History] SitaGLIPtin [Januvia] 50 mg PO DAILY 02/26/20 [History] Potassium Chloride [Klor-Con 10] 20 meq PO DAILY #30 tab.er 09/27/20 [Rx] lisinopriL [Prinivil] 20 mg PO DAILY #30 tablet 09/27/20 [Rx] Oxygen Therapy Mode: Room Air - Discharge Summary/Plan Comment DC Time >30 min.: Yes Discharge Summary/Plan Comment: Dinora was in agreement that she was unable to care for patient at this time. Discussed rate control medications; however, patient currently is in normal sinus rhythm. Will discuss blood pressure with Dr Leiva as it is normotensive at this time. Patient will be transferred to swing bed to continue with close monitoring, physical therapy for strengthening and [facility] placement. Please use discharge summary for swing bed H&P. - General Info Functional Status: Reports: Pain Controlled, Tolerating Diet, Urinating. Denies: New Symptoms - Review of Systems General: Reports: Fever, Weakness. Denies: Appetite HEENT: Reports: No Symptoms Pulmonary: Reports: No Symptoms Cardiovascular: Reports: No Symptoms Gastrointestinal: Reports: No Symptoms Genitourinary: Reports: Incontinence Musculoskeletal: Reports: No Symptoms Skin: Reports: No Symptoms Neurological: Reports: Confusion, Pre-Existing Deficit. Denies: Dizziness, Trouble Speaking, Change in Speech - Patient Data Vitals - Most Recent: Last Vital Signs Temp 97.4 F 09/29/20 12:00 Pulse 61 09/29/20 12:00 Resp 18 09/29/20 12:00 BP 143/72 H 09/29/20 12:00 Pulse Ox 96 09/29/20 12:00 Weight - Most Recent: 181 lb 9.6 oz Lab Results - Last 24 hrs: Laboratory Results - last 24 hr 09/29/20 09/29/20 Range/Units 07:37 11:56 POC Glucose 158 H 283 H (75-105) mg/dl Med Orders - Current: Current Medications Discontinued Medications Acetaminophen (Tylenol) 650 mg PO Q4H PRN PRN Reason: Pain (Mild 1-3)/fever Last Admin: 09/28/20 19:31 Dose: 650 mg Documented by: Alogliptin Benzoate (Alogliptin) 12.5 mg PO DAILY [facility] Last Admin: 09/29/20 07:41 Dose: 12.5 mg Documented by: Amlodipine Besylate (Norvasc) 10 mg PO DAILY [facility] Last Admin: 09/29/20 07:43 Dose: 10 mg Documented by: Apixaban (Eliquis) 5 mg PO BID [facility] Last Admin: 09/29/20 07:43 Dose: 5 mg Documented by: Aspirin (Halfprin) 81 mg PO DAILY [facility] Last Admin: 09/29/20 07:41 Dose: 81 mg Documented by: Clonidine HCl (Catapres) 0.1 mg PO NOW [facility] Stop: 09/24/20 12:12 Last Admin: 09/24/20 13:03 Dose: 0.1 mg Documented by: Clonidine HCl (Catapres) 0.1 mg PO BID [facility] Last Admin: 09/29/20 07:42 Dose: 0.1 mg Documented by: Clopidogrel Bisulfate (Plavix) 75 mg PO DAILY@1700 [facility] Last Admin: 09/27/20 19:54 Dose: 75 mg Documented by: Dextrose/Water (Dextrose 50% In Water) 50 ml IV ASDIRECTED PRN PRN Reason: Hypoglycemia Enoxaparin Sodium (Lovenox) 40 mg SUBCUT Q24H [facility] Last Admin: 09/27/20 21:43 Dose: 40 mg Documented by: Glucagon (Glucagen) 1 mg IM ASDIRECTED PRN PRN Reason: Hypoglycemia Potassium Chloride/Sodium Chloride (Normal Saline With 20 Meq Kcl) 1,000 mls @ 75 mls/hr IV ASDIRECTED [facility] Last Admin: 09/23/20 19:23 Dose: 75 mls/hr Documented by: Potassium Chloride 40 meq/ (Premix) 100 mls @ 25 mls/hr IV ONETIME ONE Stop: 09/24/20 13:29 Last Admin: 09/24/20 09:38 Dose: 25 mls/hr Documented by: Sodium Chloride (Normal Saline) 250 mls @ 62.5 mls/hr IV ONETIME ONE Stop: 09/24/20 13:29 Last Admin: 09/24/20 09:38 Dose: 62.5 mls/hr Documented by: Insulin Human Lispro (Humalog) 0 unit SUBCUT WITHMEALSANDBED [facility]; Protocol Last Admin: 09/29/20 12:02 Dose: 3 units Documented by: Lisinopril (Prinivil) 10 mg PO DAILY [facility] Last Admin: 09/26/20 08:08 Dose: 10 mg Documented by: Lisinopril (Prinivil) 20 mg PO DAILY [facility] Last Admin: 09/29/20 07:43 Dose: 20 mg Documented by: Lisinopril (Prinivil) 10 mg PO ONETIME ONE Stop: 09/26/20 10:48 Last Admin: 09/26/20 11:59 Dose: 10 mg Documented by: Lorazepam (Ativan) 1 mg IVPUSH Q6H PRN PRN Reason: Anxiety Metformin HCl (Glucophage) 1,000 mg PO DAILY [facility] Last Admin: 09/29/20 07:42 Dose: 1,000 mg Documented by: Nitroglycerin (Nitro-Bid 2%) 1 gm TOP Q8H [facility] Last Admin: 09/25/20 12:16 Dose: Not Given Documented by: Pantoprazole Sodium (Protonix) 40 mg PO ACBREAKFAST [facility] Last Admin: 09/29/20 06:42 Dose: 40 mg Documented by: Potassium Chloride (Klor-Con 10) 20 meq PO DAILY [facility] Last Admin: 09/29/20 07:40 Dose: 20 meq Documented by: Simvastatin (Zocor) 40 mg PO BEDTIME [facility] Last Admin: 09/28/20 19:31 Dose: 40 mg Documented by: Tamsulosin HCl (Flomax) 0.8 mg PO DAILY [facility] Last Admin: 09/29/20 07:41 Dose: 0.8 mg Documented by: - Exam General: Reports: Alert, Cooperative, No Acute Distress. Denies: Lethargic HEENT: Reports: Pupils Equal Lungs: Reports: Clear to Auscultation, Normal Respiratory Effort Cardiovascular: Reports: Regular Rate, Regular Rhythm, No Murmurs GI/Abdominal Exam: Normal Bowel Sounds, Soft, Non-Tender Extremities: Normal Inspection, Non-Tender Skin: Reports: Warm, Dry, Intact Neurological: Reports: Normal Speech, Strength Equal Bilateral Psy/Mental Status: Reports: Alert, Normal Mood
== END 2020-09-29 13:00 | disposition swing bed (61) | DRG 305 ==
LOC: CC.FCMC 15:18 → CC.MS 16:03 → UNDOADMIN 16:03 → CC.MS 16:58
PROVIDERS: ADMIT Family Medicine; ATTEND Family Medicine
DX: I16.0 Hypertensive urgency (principal); G45.9 Transient cerebral ischemic attack, unspecified; E87.6 Hypokalemia; E11.9 Type 2 diabetes mellitus without complications; N52.9 Male erectile dysfunction, unspecified; M54.5 Low back pain; I48.0 Paroxysmal atrial fibrillation; N40.1 Benign prostatic hyperplasia with lower urinary tract symptoms; R35.0 Frequency of micturition; R41.3 Other amnesia; G47.33 Obstructive sleep apnea (adult) (pediatric); R25.1 Tremor, unspecified; E78.5 Hyperlipidemia, unspecified; Z20.828 Contact with and (suspected) exposure to other viral communicable diseases; Z79.01 Long term (current) use of anticoagulants; Z79.02 Long term (current) use of antithrombotics/antiplatelets; Z79.82 Long term (current) use of aspirin; Z79.84 Long term (current) use of oral hypoglycemic drugs; Z99.81 Dependence on supplemental oxygen; Z87.891 Personal history of nicotine dependence
CPT/HCPCS: 36415; 70450; 80048; 80053; 81001; 82550; 82962; 83735; 84484; 85025; 85610; 85730; 86140; 93005; 97161-GP; 97164-GP; A9270-GY; J1650; J1815-GY; J3480; J7050; U0002

== ENCOUNTER 2020-09-29 13:08 | Inpatient (IN) | payer MEDICARE, BC ==
[2020-09-29] MEDS ORDERED: Acetaminophen 325 MG Tab PO PRN (14:23)
[2020-09-29] MEDS ORDERED: Glucagon,Human Recombinant 1 MG Vial IM PRN ×2 (14:23)
[2020-09-29] MEDS ORDERED: LORazepam 2 MG/ML Syringe IVPUSH PRN (14:23)
[2020-09-29] MEDS ORDERED: 50% Dextrose in Water 50 ML Syringe IV PRN (14:23)
[2020-09-29] MEDS: Insulin Lispro 100 Units/ML 3 ML Vial SUBCUT SCH ×2 (17:17→20:15)
[2020-09-29] MEDS: Apixaban 5 MG Tab PO SCH (19:17)
[2020-09-29] MEDS: Simvastatin 40 MG Tab PO SCH (19:17)
[2020-09-29] MEDS: cloNIDine 0.1 MG Tab PO SCH (19:19)
[2020-09-30] MEDS: Pantoprazole 40 MG Tab.CR PO SCH (06:29)
[2020-09-30] MEDS: Potassium Chloride 10 MEQ Tab.ER PO SCH (07:44)
[2020-09-30] MEDS: amLODIPine 10 MG Tab PO SCH (07:45)
[2020-09-30] MEDS: metFORMIN 500 MG Tab PO SCH (07:45)
[2020-09-30] MEDS: Apixaban 5 MG Tab PO SCH ×2 (07:45→19:25)
[2020-09-30] MEDS: Tamsulosin 0.4 MG Cap.ER PO SCH (07:46)
[2020-09-30] MEDS: cloNIDine 0.1 MG Tab PO SCH ×2 (07:46→19:24)
[2020-09-30] MEDS: Insulin Lispro 100 Units/ML 3 ML Vial SUBCUT SCH ×4 (07:47→20:31)
[2020-09-30] MEDS: Lisinopril 20 MG Tab PO SCH (07:47)
[2020-09-30] MEDS: Aspirin 81 MG Tab.EC PO SCH (07:47)
[2020-09-30] MEDS: Simvastatin 40 MG Tab PO SCH (19:25)
[2020-10-01] MEDS: Pantoprazole 40 MG Tab.CR PO SCH (06:26)
[2020-10-01] MEDS: Aspirin 81 MG Tab.EC PO SCH (07:38)
[2020-10-01] MEDS: metFORMIN 500 MG Tab PO SCH (07:39)
[2020-10-01] MEDS: amLODIPine 10 MG Tab PO SCH (07:39)
[2020-10-01] MEDS: Tamsulosin 0.4 MG Cap.ER PO SCH (07:40)
[2020-10-01] MEDS: cloNIDine 0.1 MG Tab PO SCH ×2 (07:40→19:29)
[2020-10-01] MEDS: Potassium Chloride 10 MEQ Tab.ER PO SCH (07:40)
[2020-10-01] MEDS: Lisinopril 20 MG Tab PO SCH (07:41)
[2020-10-01] MEDS: Apixaban 5 MG Tab PO SCH ×2 (07:41→19:29)
[2020-10-01] MEDS: Insulin Lispro 100 Units/ML 3 ML Vial SUBCUT SCH ×2 (07:42→16:59)
[2020-10-01] MEDS: Simvastatin 40 MG Tab PO SCH (19:29)
[2020-10-02] MEDS: Pantoprazole 40 MG Tab.CR PO SCH (06:45)
[2020-10-02] MEDS: Potassium Chloride 10 MEQ Tab.ER PO SCH (07:23)
[2020-10-02] MEDS: Lisinopril 20 MG Tab PO SCH (07:24)
[2020-10-02] MEDS: cloNIDine 0.1 MG Tab PO SCH ×2 (07:24→19:02)
[2020-10-02] MEDS: Tamsulosin 0.4 MG Cap.ER PO SCH (07:24)
[2020-10-02] MEDS: metFORMIN 500 MG Tab PO SCH (07:25)
[2020-10-02] MEDS: Apixaban 5 MG Tab PO SCH ×2 (07:25→19:02)
[2020-10-02] MEDS: amLODIPine 10 MG Tab PO SCH (07:25)
[2020-10-02] MEDS: Insulin Lispro 100 Units/ML 3 ML Vial SUBCUT SCH ×2 (07:26→17:30)
[2020-10-02] MEDS: Aspirin 81 MG Tab.EC PO SCH (07:26)
[2020-10-02] MEDS: Simvastatin 40 MG Tab PO SCH (19:02)
[2020-10-03] MEDS: Pantoprazole 40 MG Tab.CR PO SCH (06:35)
[2020-10-03] MEDS: Apixaban 5 MG Tab PO SCH ×2 (07:58→19:02)
[2020-10-03] MEDS: Aspirin 81 MG Tab.EC PO SCH (07:58)
[2020-10-03] MEDS: Tamsulosin 0.4 MG Cap.ER PO SCH (07:58)
[2020-10-03] MEDS: Potassium Chloride 10 MEQ Tab.ER PO SCH (07:58)
[2020-10-03] MEDS: Insulin Lispro 100 Units/ML 3 ML Vial SUBCUT SCH ×2 (08:02→16:58)
[2020-10-03] MEDS: cloNIDine 0.1 MG Tab PO SCH ×2 (08:03→19:03)
[2020-10-03] MEDS: metFORMIN 500 MG Tab PO SCH (08:04)
[2020-10-03] MEDS: amLODIPine 10 MG Tab PO SCH (08:04)
[2020-10-03] MEDS: Lisinopril 20 MG Tab PO SCH (08:05)
[2020-10-03] MEDS: Simvastatin 40 MG Tab PO SCH (19:02)
[2020-10-04] MEDS: amLODIPine 10 MG Tab PO SCH (07:43)
[2020-10-04] MEDS: cloNIDine 0.1 MG Tab PO SCH ×2 (07:44→19:15)
[2020-10-04] MEDS: Potassium Chloride 10 MEQ Tab.ER PO SCH (07:44)
[2020-10-04] MEDS: metFORMIN 500 MG Tab PO SCH (07:45)
[2020-10-04] MEDS: Lisinopril 20 MG Tab PO SCH (07:45)
[2020-10-04] MEDS: Apixaban 5 MG Tab PO SCH ×2 (07:46→19:15)
[2020-10-04] MEDS: Tamsulosin 0.4 MG Cap.ER PO SCH (07:46)
[2020-10-04] MEDS: Aspirin 81 MG Tab.EC PO SCH (07:47)
[2020-10-04] MEDS: Pantoprazole 40 MG Tab.CR PO SCH (07:47)
[2020-10-04] MEDS: Insulin Lispro 100 Units/ML 3 ML Vial SUBCUT SCH ×2 (07:48→17:13)
[2020-10-04] MEDS: Simvastatin 40 MG Tab PO SCH (19:15)
[2020-10-05] MEDS: Pantoprazole 40 MG Tab.CR PO SCH (06:56)
[2020-10-05] MEDS: Tamsulosin 0.4 MG Cap.ER PO SCH (07:36)
[2020-10-05] MEDS: cloNIDine 0.1 MG Tab PO SCH (07:36)
[2020-10-05] MEDS: Aspirin 81 MG Tab.EC PO SCH (07:36)
[2020-10-05] MEDS: Potassium Chloride 10 MEQ Tab.ER PO SCH (07:36)
[2020-10-05] MEDS: amLODIPine 10 MG Tab PO SCH (07:36)
[2020-10-05 07:37] VITALS: BP 148/75
[2020-10-05] MEDS: Apixaban 5 MG Tab PO SCH (07:37)
[2020-10-05] MEDS: Lisinopril 20 MG Tab PO SCH (07:37)
[2020-10-05] MEDS: metFORMIN 500 MG Tab PO SCH (08:04)
[2020-10-05] MEDS: Insulin Lispro 100 Units/ML 3 ML Vial SUBCUT SCH (08:07)
--- NOTE | 2020-10-05 08:30 | PCM.DCSUM1 ---
Discharge Summary - Hospital Course HPI Initial Comments: Tashi is an 80 yo male who was admitted to the hospital by Dr. Leiva on the 23 of September with a hypertensive urgency. Patient had presented to the clinic with his spouse to discuss a decline in memory. Symptoms were noted to be getting worse over the last 3-4 weeks. Upon work up by Dr. Leiva, patient had significant elevation of his blood pressure and found to have hypokalemia. Patient was a direct admit to the hospital for clinic. Patient is a known d iabetic with elevated blood sugar readings and was started on sliding scale insulin while in hospital. Timoteo was doing well while in acute stay. Over the course of the first few days he was feeling a lot better and didn't have any complaints. Blood pressure had significantly improved since admit. Patient was started on Clonidine 0.1mg BID, Lisinopril increased to 20mg daily and Norvasc 10mg daily. Potassium had corrected as well to 4.2. shelter consult discussed and declined at that time as patient and his were currently waiting for placement at the [facility]. agreed with home health services. Patient denied any complaints or concerns at this time. Initially had planned for discharge in the afternoon. Patient was being prepared for discharge on the 29 of September when nursing staff noticed patient to have increased confusion, slurred speech and was unable to move right lower extremity with right upper extremity weakness. Proceeded with CT of the brain which did not show any hemorrhagic or ischemic events. Dr. Leiva consulted and did evaluate patient at that time. Patient appeared to have movement of the right upper and lower extremity upon evaluation; however did show complete neglect to his right side. Speech did not appear to be slurred. Timoteo appeared again to be a lot better the next morning and denied any concerns. Continued to have confusion in regards to date and place. Otherwise was answering all questions appropriately. Patient has been up ambulating to the bathroom and had no further right sided weakness. During the night it was captured on telemetry that Timoteo went into atrial fibrillation but had converted to normal sinus rhythm shortly after. Dr. Leiva was again consulted and concerned of thrombotic stroke secondary to paroxysmal atrial fibrillation. Patient was started on Eliquis that evening. Plavix and Lovenox were d/c'd. Aayush has had a normal rate and rhythm since the initial isolated episode. Discussed beta vangie or Cardizem to prevent further episodes. Timoteo has continued to show improvement daily since. has been present and feels Timoteo is back to his normal baseline. Plan is to discharge to [facility]. He has been up walking without any difficulty. Patient has taken his own bed alarm off as he doesn't feel he needs assistance to the bathroom, etc... - Discharge Data Discharge Date: 10/05/20 Discharge Disposition: Home, W Home Health Agency 06 Condition: Fair - Referral to Home Health Date of Face to Face Encounter: 10/05/20 Reason for Homebound Status: Inability to drive due to confusion, weakness. Primary Care Physician: Alejandro Leiva MD Skilled Need: Nursing to monitor lung status, blood pressure due to recent medication changes. Physical therapy for strengthen, ambulation. Occupational therapy for ADL's. - Discharge Diagnosis/Problem(s) (1) AF (paroxysmal atrial fibrillation) SNOMED Code(s): 285297560 ICD Code: I48.0 - PAROXYSMAL ATRIAL FIBRILLATION Status: Resolved (2) Hypertensive urgency SNOMED Code(s): 499659813 ICD Code: I16.0 - HYPERTENSIVE URGENCY Status: Resolved Priority: High (3) Hypokalemia SNOMED Code(s): 69819580 ICD Code: E87.6 - HYPOKALEMIA Status: Resolved Priority: High (4) Transient ischemic attack SNOMED Code(s): 425994386 ICD Code: G45.9 - TRANSIENT CEREBRAL ISCHEMIC ATTACK, UNSPECIFIED Status: Resolved - Patient Summary/Data Consults: Consultations 09/29/20 14:23 Consult to Case Management/Skirt Maker [CONS] Routine Consult to Physical Therapy [PT Evaluation and Treatment] [CONS] Routine - Patient Instructions Diet: Diabetic Diet Activity: As Tolerated Driving: Do Not Drive - Discharge Plan *PRESCRIPTION DRUG MONITORING PROGRAM REVIEWED*: Not Applicable *COPY OF PRESCRIPTION DRUG MONITORING REPORT IN PATIENT EMMA: Not Applicable Prescriptions/Med Rec: cloNIDine [Catapres] 0.1 mg PO BID #60 tablet Apixaban [Eliquis] 5 mg PO BID #60 tablet Home Medications: Home Meds Aspirin [Halfprin] 81 mg PO DAILY 01/13/16 [History] Simvastatin 40 mg PO BEDTIME 01/13/16 [History] Tamsulosin HCl 0.8 mg PO DAILY 01/13/16 [History] amLODIPine Besylate [Amlodipine Besylate] 10 mg PO DAILY 01/13/16 [History] Pantoprazole Sodium [Protonix] 40 mg PO DAILY 02/17/20 [History] metFORMIN HCl [Metformin HCl] 1,000 mg PO BID 02/17/20 [History] SitaGLIPtin [Januvia] 50 mg PO DAILY 02/26/20 [History] Potassium Chloride [Klor-Con 10] 20 meq PO DAILY #30 tab.er 09/27/20 [Rx] lisinopriL [Prinivil] 20 mg PO DAILY #30 tablet 09/27/20 [Rx] Apixaban [Eliquis] 5 mg PO BID #60 tablet 10/05/20 [Rx] cloNIDine [Catapres] 0.1 mg PO BID #60 tablet 10/05/20 [Rx] Referrals: Alejandro Leiva MD [Primary Care Provider] - (1 week with labs prior) - Discharge Summary/Plan Comment DC Time >30 min.: Yes Discharge Summary/Plan Comment: Timoteo will be discharged today home with home health care. PT and occupational therapy as well to assist patient. Patient and his plan on moving into [facility] for assisted living. Timoteo has been doing well since isolated episode of atrial fibrillation, blood pressure has been stable. Patient has shown significant improvement with ambulation and cognition. Plan for discharge early afternoon. , Dinora, will come pick patient up today. - General Info Date of Service: 10/05/20 Functional Status: Reports: Tolerating Diet, Ambulating, Urinating - Review of Systems General: Reports: No Symptoms HEENT: Reports: No Symptoms Pulmonary: Reports: No Symptoms Cardiovascular: Reports: No Symptoms Gastrointestinal: Reports: No Symptoms Genitourinary: Reports: No Symptoms Musculoskeletal: Reports: No Symptoms Skin: Reports: No Symptoms Neurological: Reports: No Symptoms Psychiatric: Reports: No Symptoms - Patient Data Vitals - Most Recent: Last Vital Signs Temp 97.4 F 10/04/20 19:14 Pulse 96 10/04/20 19:14 Resp 20 10/04/20 19:14 BP 148/75 H 10/05/20 07:37 Pulse Ox 98 10/04/20 19:14 Weight - Most Recent: 175 lb 1.6 oz Lab Results - Last 24 hrs: Laboratory Results - last 24 hr 10/04/20 10/05/20 Range/Units 17:13 08:04 POC Glucose 187 H 174 H (75-105) mg/dl Med Orders - Current: Current Medications Acetaminophen (Tylenol) 650 mg PO Q4H PRN PRN Reason: Pain (Mild 1-3)/fever Last Admin: 10/02/20 20:31 Dose: 650 mg Documented by: Alogliptin Benzoate (Alogliptin) 12.5 mg PO DAILY [facility] Last Admin: 10/05/20 07:36 Dose: 12.5 mg Documented by: Amlodipine Besylate (Norvasc) 10 mg PO DAILY [facility] Last Admin: 10/05/20 07:36 Dose: 10 mg Documented by: Apixaban (Eliquis) 5 mg PO BID [facility] Last Admin: 10/05/20 07:37 Dose: 5 mg Documented by: Aspirin (Halfprin) 81 mg PO DAILY [facility] Last Admin: 10/05/20 07:36 Dose: 81 mg Documented by: Clonidine HCl (Catapres) 0.1 mg PO BID [facility] Last Admin: 10/05/20 07:36 Dose: 0.1 mg Documented by: Dextrose/Water (Dextrose 50% In Water) 50 ml IV ASDIRECTED PRN PRN Reason: Hypoglycemia Dextrose/Water (Dextrose 50% In Water) 50 ml IV ASDIRECTED PRN PRN Reason: Hypoglycemia Glucagon (Glucagen) 1 mg IM ASDIRECTED PRN PRN Reason: Hypoglycemia Glucagon (Glucagen) 1 mg IM ASDIRECTED PRN PRN Reason: Hypoglycemia Insulin Human Lispro (Humalog) 0 unit SUBCUT BIDMEALS [facility]; Protocol Last Admin: 10/05/20 08:07 Dose: 1 units Documented by: Lisinopril (Prinivil) 20 mg PO DAILY [facility] Last Admin: 10/05/20 07:37 Dose: 20 mg Documented by: Lorazepam (Ativan) 1 mg IVPUSH Q6H PRN PRN Reason: Anxiety Metformin HCl (Glucophage) 1,000 mg PO DAILY [facility] Last Admin: 10/05/20 08:04 Dose: 1,000 mg Documented by: Pantoprazole Sodium (Protonix) 40 mg PO ACBREAKFAST [facility] Last Admin: 10/05/20 06:56 Dose: 40 mg Documented by: Potassium Chloride (Klor-Con 10) 20 meq PO DAILY [facility] Last Admin: 10/05/20 07:36 Dose: 20 meq Documented by: Simvastatin (Zocor) 40 mg PO BEDTIME [facility] Last Admin: 10/04/20 19:15 Dose: 40 mg Documented by: Tamsulosin HCl (Flomax) 0.8 mg PO DAILY [facility] Last Admin: 10/05/20 07:36 Dose: 0.8 mg Documented by: Discontinued Medications Insulin Human Lispro (Humalog) 0 unit SUBCUT WITHMEALSANDBED [facility]; Protocol Last Admin: 10/01/20 07:42 Dose: 1 units Documented by: - Exam General: Reports: Alert, Oriented, Cooperative, No Acute Distress Neck: Reports: Supple Lungs: Reports: Clear to Auscultation, Normal Respiratory Effort Cardiovascular: Reports: Regular Rate, Regular Rhythm GI/Abdominal Exam: Normal Bowel Sounds, Soft, Non-Tender, No Distention Extremities: Normal Inspection, No Pedal Edema Skin: Reports: Warm, Dry, Intact Neurological: Reports: No New Focal Deficit Psy/Mental Status: Reports: Alert, Normal Mood
[2020-10-05 08:43] VITALS: PULSE 56
== END 2020-10-05 14:10 | disposition home health service (06) | DRG 69 ==
LOC: CC.MS 13:08 → UNDOADMIN 13:08 → CC.MS 14:23
PROVIDERS: ADMIT Physician Assistant Medical; ATTEND Family Medicine
DX: G45.9 Transient cerebral ischemic attack, unspecified (principal); I48.0 Paroxysmal atrial fibrillation; I16.0 Hypertensive urgency; E87.6 Hypokalemia; Z79.82 Long term (current) use of aspirin; Z79.84 Long term (current) use of oral hypoglycemic drugs; Z79.899 Other long term (current) drug therapy; E11.9 Type 2 diabetes mellitus without complications
CPT/HCPCS: 82962; 97110-GP; 97530-GP; A9270-GY

== ENCOUNTER 2020-11-27 14:00 | Observation (INO) | payer MEDICARE, BC ==
--- NOTE | 2020-11-27 14:25 | EDM.PDOC ---
ED HPI GENERAL MEDICAL PROBLEM - General Chief Complaint: General Stated Complaint: black, tarry stools, weak, chills Time Seen by Provider: 11/27/20 14:10 Source of Information: Reports: Patient, Family History Limitations: Reports: No Limitations - History of Present Illness INITIAL COMMENTS - FREE TEXT/NARRATIVE: Tashi is an 80 year old male who presents to ER with complaints of increased weakness, fatigue and black tarry stools for 6 days now. Lolita rough last Sunday, noted dark stools. Thought it was related to having large meal on Sunday. Did feel better through the week but dark stools persisted. His appetite has still been good. Denies nausea/vomiting/abdominal pain. No SOB or chest pain. No blood noted rectally between stools. No headaches. Denies fee ling lightheaded. Was started on Eliquis last September due to "mini strokes". states has been much less confused since being on that med. Is chronically confused at times but that has been stable without change in the last week. Does admit that he is inconsistent with his times when taking the medicine. Not aware of any history of PUD. Onset: Gradual Duration: Day(s):, Constant Location: Reports: Abdomen Associated Symptoms: Reports: Fever/Chills, Malaise, Weakness. Denies: Confusio n, Chest Pain, Cough, Headaches, Loss of Appetite, Nausea/Vomiting, Shortness of Breath, Syncope - Related Data Allergies Allergy/AdvReac Type Severity Reaction Status Date / Time No Known Allergies Allergy Verified 11/27/20 14:11 Home Meds: Home Meds Aspirin [Halfprin] 81 mg PO DAILY 01/13/16 [History] Simvastatin 40 mg PO BEDTIME 01/13/16 [History] Tamsulosin HCl 0.8 mg PO DAILY 01/13/16 [History] amLODIPine Besylate [Amlodipine Besylate] 10 mg PO DAILY 01/13/16 [History] Pantoprazole Sodium [Protonix] 40 mg PO DAILY 02/17/20 [History] metFORMIN HCl [Metformin HCl] 1,000 mg PO BID 02/17/20 [History] SitaGLIPtin [Januvia] 50 mg PO DAILY 02/26/20 [History] Potassium Chloride [Klor-Con 10] 20 meq PO DAILY #30 tab.er 09/27/20 [Rx] lisinopriL [Prinivil] 20 mg PO DAILY #30 tablet 09/27/20 [Rx] Apixaban [Eliquis] 5 mg PO BID #60 tablet 10/05/20 [Rx] cloNIDine [Catapres] 0.1 mg PO BID #60 tablet 10/05/20 [Rx] Past Medical History - Past Health History Medical/Surgical History: Denies Medical/Surgical History Cardiovascular History: Reports: High Cholesterol, Hypertension Respiratory History: Reports: Sleep Apnea Gastrointestinal History: Reports: PUD Genitourinary History: Reports: BPH Neurological History: Reports: Other (See Below) Other Neuro History: memory impairment Endocrine/Metabolic History: Reports: Diabetes, Type II - Past Surgical History Other HEENT Surgeries/Procedures: pt confused of past health Social & Family History - Family History Family Medical History: No Pertinent Family History - Tobacco Use Tobacco Use Status *Q: Never Tobacco User - Caffeine Use Caffeine Use: Reports: None - Recreational Drug Use Recreational Drug Use: No ED ROS GENERAL - Review of Systems Review Of Systems: See Below Constitutional: Reports: Chills, Malaise, Weakness, Fatigue. Denies: Fever, Decreased Appetite HEENT: Denies: Ear Pain, Rhinitis, Sinus Problem, Throat Pain, Vertigo Respiratory: Denies: Shortness of Breath, Cough Cardiovascular: Denies: Chest Pain, Edema, Lightheadedness Endocrine: Reports: Fatigue GI/Abdominal: Reports: Black Stool. Denies: Abdominal Pain, Nausea, Vomiting : Reports: Incontinence Musculoskeletal: Reports: No Symptoms Skin: Reports: No Symptoms Neurological: Reports: Weakness ED EXAM, GENERAL - Physical Exam Exam: See Below Exam Limited By: No Limitations General Appearance: Alert, WD/WN, No Apparent Distress Eye Exam: Bilateral Eye: PERRL Ears: Normal External Exam, Normal TMs Nose: Normal Inspection, Normal Mucosa, No Blood Throat/Mouth: Normal Inspection, Normal Oropharynx Head: Normocephalic Neck: Normal Inspection, Supple, Non-Tender Respiratory/Chest: No Respiratory Distress, Lungs Clear, Normal Breath Sounds Cardiovascular: Regular Rate, Rhythm GI/Abdominal: Normal Bowel Sounds, Soft, Non-Tender Extremities: Normal Inspection, No Pedal Edema Neurological: Alert, Oriented Skin Exam: Warm, Dry Course - Vital Signs Last Recorded V/S: Last Vital Signs Temp 99.9 F 11/27/20 14:07 Pulse 63 11/27/20 14:07 Resp 18 11/27/20 14:07 BP 139/78 11/27/20 14:07 Pulse Ox 97 11/27/20 14:07 - Orders/Labs/Meds Orders: Active Orders 24 hr Category Date Time Status Patient Status Manage Transfer [TRANSFER] Routine ADT 11/27/20 14:53 Active Resuscitation Status Routine Resus Stat 11/27/20 14:54 Ordered EKG 12 Lead [EK] Stat Ther 11/27/20 13:39 Ordered Labs: Laboratory Tests 11/27/20 11/27/20 Range/Units 13:38 13:38 WBC 7.8 (5.0-10.0) 10^3/uL RBC 4.25 L (4.50-6.00) 10^6/uL Hgb 12.8 L (14.0-18.0) g/dL Hct 37.6 L (40.0-54.0) % MCV 88.5 (82.0-94.0) fL MCH 30.1 (27.0-32.0) pg MCHC 34.0 (33.0-38.0) g/dL RDW Coeff of Page 13.2 (11.0-15.0) % Plt Count 206 (150-400) 10^3/uL Neut % (Auto) 60.6 (35-85) % Lymph % (Auto) 25.7 (10-55) % Bleckley % (Auto) 7.2 (0-16) % Eos % (Auto) 6.0 H (0-5) % Baso % (Auto) 0.5 (0-3) % Neut # (Auto) 4.70 (1.80-7.00) 10^3/uL Lymph # (Auto) 2.00 (1.00-4.80) 10^3/uL Bleckley # (Auto) 0.56 (0.00-0.80) 10^3/uL Eos # (Auto) 0.47 H (0.00-0.45) 10^3/uL Baso # (Auto) 0.04 10^3/uL Sodium 141 (136-145) mEq/L Potassium 4.2 (3.5-5.0) mEq/L Chloride 104 (98-106) mEq/L Carbon Dioxide 25 (21-32) mmol/L BUN 22 H (7-18) mg/dL Creatinine 1.4 H (0.7-1.3) mg/dL Est Cr Clr Drug Dosing 41.38 mL/min Estimated GFR (MDRD) 49 L (>=60) mL/min Glucose 213 H (75-99) mg/dL Calcium 8.8 (8.4-10.1) mg/dL Total Bilirubin 0.8 (0.0-1.0) mg/dL AST 15 (15-37) U/L ALT 16 (12-78) U/L Alkaline Phosphatase 68 (46-116) U/L Troponin I < 0.017 (0.00-0.06) ng/mL C-Reactive Protein < 0.2 L (0.2-0.8) mg/dL Total Protein 6.7 (6.4-8.2) g/dL Albumin 3.5 (3.4-5.0) g/dL - Re-Assessments/Exams Free Text/Narrative Re-Assessment/Exam: 11/27/20 15:00 Labs reviewed. Hemoglobin 12.8. Did consult with Dr. Leiva. Will admit for observation. Start IV Protonix. Hold eliquis. Plan to proceed with EGD on Sunday with Dr. Leiva. Departure - Departure Time of Disposition: 15:01 Disposition: Refer to Observation Condition: Fair Clinical Impression: Melena, Weakness - Discharge Information *PRESCRIPTION DRUG MONITORING PROGRAM REVIEWED*: No *COPY OF PRESCRIPTION DRUG MONITORING REPORT IN PATIENT EMMA: No Referrals: Alejandro Leiva MD [Primary Care Provider] - Forms: ED Department Discharge Sepsis Event Note (ED) - Evaluation Sepsis Screening Result: No Definite Risk - Focused Exam Vital Signs: Vital Signs Temp Pulse Resp BP Pulse Ox 11/27/20 14:07 99.9 F 63 18 139/78 97 - Problem List & Annotations (1) Melena SNOMED Code(s): 9830618 Code(s): K92.1 - MELENA Status: Acute Priority: High (2) Weakness SNOMED Code(s): 19192519 Code(s): R53.1 - WEAKNESS Status: Acute Priority: High - Problem List Review Problem List Initiated/Reviewed/Updated: Yes - My Orders Last 24 Hours: My Active Orders 11/27/20 13:39 EKG 12 Lead [EK] Stat 11/27/20 14:53 Patient Status Manage Transfer [TRANSFER] Routine 11/27/20 14:54 Resuscitation Status Routine - Assessment/Plan Admission H&P: Please use this note as an admission H&P Last 24 Hours: My Active Orders 11/27/20 13:39 EKG 12 Lead [EK] Stat 11/27/20 14:53 Patient Status Manage Transfer [TRANSFER] Routine 11/27/20 14:54 Resuscitation Status Routine Assessment:: melena Weakness Plan: Plan for admit to observation. Start IV Protonix, hold Eliquis. Plan for EGD on Sunday
[2020-11-27 14:40] LABS: CHLORIDE,CL 104 mEq/L (98-106); SODIUM,NA 141 mEq/L (136-145)
[2020-11-27] MEDS ORDERED: Ondansetron 4 MG/2 ML SDV IV PRN (15:55)
[2020-11-27] MEDS ORDERED: Acetaminophen 325 MG Tab PO PRN (15:55)
[2020-11-27] MEDS ORDERED: Sodium Chloride 0.9% 10 ML Syringe FLUSH PRN (15:55)
[2020-11-27] MEDS ORDERED: Sodium Chloride 0.9% 1,000 ML IV SCH (15:55)
[2020-11-27] MEDS ORDERED: Ondansetron 4 MG Tab.DIS PO PRN (15:55)
[2020-11-27] MEDS: Pantoprazole 40 MG Vial IVPUSH SCH (16:43)
[2020-11-27] MEDS: METFORMIN HCL 1000 MG PO SCH (21:42)
[2020-11-27] MEDS: cloNIDine 0.1 MG Tab ** OWN MED PO SCH (21:42)
[2020-11-27] MEDS: SIMVASTATIN 40 MG PO SCH (21:43)
[2020-11-28] MEDS: Lisinopril 20 MG Tab ** OWN MED PO SCH (07:34)
[2020-11-28] MEDS: METFORMIN HCL 1000 MG PO SCH ×2 (07:34→19:32)
[2020-11-28] MEDS: Potassium Chloride 20 MEQ Tab.ER ** OWN MED PO SCH (07:34)
[2020-11-28] MEDS: Tamsulosin 0.4 MG Cap.ER ** OWN MED PO SCH (07:35)
[2020-11-28] MEDS: cloNIDine 0.1 MG Tab ** OWN MED PO SCH ×2 (07:35→19:32)
[2020-11-28] MEDS: amLODIPine 10 MG Tab ** OWN MED PO SCH (07:35)
[2020-11-28] MEDS: SITAGLIPTIN 50 MG PO SCH (07:36)
--- NOTE | 2020-11-28 08:36 | PCM.PN ---
- General Info Date of Service: 11/28/20 Admission Dx/Problem (Free Text): Melena Weakness Subjective Update: Patient is feeling good this am. Denies any chest pain, shortness of breath or lightheadedness. Did have BM last evening that appeared more brown in color per nurse. However, FOB was positive in the ER prior. Patient denies lightheadedness. Has been up to the bathroom and stable with ambulation. Appetite has been good, taking fluids well. Vital signs have been stable. Functional Status: Reports: Pain Controlled, Tolerating Diet, Ambulating - Review of Systems General: Reports: Weakness, Malaise. Denies: Fever, Fatigue HEENT: Denies: Ear Pain, Headaches, Sinus Congestion, Sore Throat, Rhinitis, Visual Changes Pulmonary: Denies: Shortness of Breath Cardiovascular: Denies: Chest Pain, Edema, Lightheadedness Gastrointestinal: Denies: Abdominal Pain, Nausea, Vomiting Genitourinary: Reports: No Symptoms Musculoskeletal: Reports: No Symptoms Skin: Reports: No Symptoms Neurological: Reports: Weakness - Patient Data Vitals - Most Recent: Last Vital Signs Temp 98.1 F 11/28/20 07:56 Pulse 60 11/28/20 07:56 Resp 18 11/28/20 07:56 BP 146/80 H 11/28/20 07:56 Pulse Ox 94 L 11/28/20 07:56 Weight - Most Recent: 180 lb 1.6 oz Lab Results Last 24 Hours: Laboratory Results - last 24 hr 11/27/20 11/27/20 11/28/20 Range/Units 13:38 13:38 05:11 WBC 7.8 6.7 (5.0-10.0) 10^3/uL RBC 4.25 L 3.80 L (4.50-6.00) 10^6/uL Hgb 12.8 L 11.6 L (14.0-18.0) g/dL Hct 37.6 L 34.0 L (40.0-54.0) % MCV 88.5 89.5 (82.0-94.0) fL MCH 30.1 30.5 (27.0-32.0) pg MCHC 34.0 34.1 (33.0-38.0) g/dL RDW Coeff of Page 13.2 13.0 (11.0-15.0) % Plt Count 206 181 (150-400) 10^3/uL Neut % (Auto) 60.6 55.7 (35-85) % Lymph % (Auto) 25.7 26.5 (10-55) % [place] % (Auto) 7.2 7.8 (0-16) % Eos % (Auto) 6.0 H 9.4 H (0-5) % Baso % (Auto) 0.5 0.6 (0-3) % Neut # (Auto) 4.70 3.71 (1.80-7.00) 10^3/uL Lymph # (Auto) 2.00 1.77 (1.00-4.80) 10^3/uL [place] # (Auto) 0.56 0.52 (0.00-0.80) 10^3/uL Eos # (Auto) 0.47 H 0.63 H (0.00-0.45) 10^3/uL Baso # (Auto) 0.04 0.04 10^3/uL Sodium 141 (136-145) mEq/L Potassium 4.2 (3.5-5.0) mEq/L Chloride 104 (98-106) mEq/L Carbon Dioxide 25 (21-32) mmol/L BUN 22 H (7-18) mg/dL Creatinine 1.4 H (0.7-1.3) mg/dL Est Cr Clr Drug Dosing 41.38 mL/min Estimated GFR (MDRD) 49 L (>=60) mL/min Glucose 213 H (75-99) mg/dL Calcium 8.8 (8.4-10.1) mg/dL Total Bilirubin 0.8 (0.0-1.0) mg/dL AST 15 (15-37) U/L ALT 16 (12-78) U/L Alkaline Phosphatase 68 (46-116) U/L Troponin I < 0.017 (0.00-0.06) ng/mL C-Reactive Protein < 0.2 L (0.2-0.8) mg/dL Total Protein 6.7 (6.4-8.2) g/dL Albumin 3.5 (3.4-5.0) g/dL 11/28/20 Range/Units 05:11 WBC (5.0-10.0) 10^3/uL RBC (4.50-6.00) 10^6/uL Hgb (14.0-18.0) g/dL Hct (40.0-54.0) % MCV (82.0-94.0) fL MCH (27.0-32.0) pg MCHC (33.0-38.0) g/dL RDW Coeff of Page (11.0-15.0) % Plt Count (150-400) 10^3/uL Neut % (Auto) (35-85) % Lymph % (Auto) (10-55) % [place] % (Auto) (0-16) % Eos % (Auto) (0-5) % Baso % (Auto) (0-3) % Neut # (Auto) (1.80-7.00) 10^3/uL Lymph # (Auto) (1.00-4.80) 10^3/uL [place] # (Auto) (0.00-0.80) 10^3/uL Eos # (Auto) (0.00-0.45) 10^3/uL Baso # (Auto) 10^3/uL Sodium 142 (136-145) mEq/L Potassium 4.0 (3.5-5.0) mEq/L Chloride 106 (98-106) mEq/L Carbon Dioxide 25 (21-32) mmol/L BUN 18 (7-18) mg/dL Creatinine 1.2 (0.7-1.3) mg/dL Est Cr Clr Drug Dosing 48.28 mL/min Estimated GFR (MDRD) 58 L (>=60) mL/min Glucose 131 H D (75-99) mg/dL Calcium 8.2 L (8.4-10.1) mg/dL Total Bilirubin (0.0-1.0) mg/dL AST (15-37) U/L ALT (12-78) U/L Alkaline Phosphatase (46-116) U/L Troponin I (0.00-0.06) ng/mL C-Reactive Protein (0.2-0.8) mg/dL Total Protein (6.4-8.2) g/dL Albumin (3.4-5.0) g/dL Med Orders - Current: Current Medications Acetaminophen (Tylenol) 650 mg PO Q4H PRN PRN Reason: Pain (Mild 1-3)/fever Amlodipine Besylate (Norvasc) 10 mg PO DAILY [facility] Last Admin: 11/28/20 07:35 Dose: 10 mg Documented by: Clonidine HCl (Catapres) 0.1 mg PO BID [facility] Last Admin: 11/28/20 07:35 Dose: 0.1 mg Documented by: Lisinopril (Prinivil) 20 mg PO DAILY [facility] Last Admin: 11/28/20 07:34 Dose: 20 mg Documented by: Metformin Hcl 1,000 (Mg Own Med ) 1,000 mg PO BID [facility] Last Admin: 11/28/20 07:34 Dose: 1,000 mg Documented by: Potassium Chloride 20 Meq Tab.Er Own Med 0 each PO DAILY [facility] Last Admin: 11/28/20 07:34 Dose: 1 each Documented by: Sitagliptin 50 Mg * (* Own Med ) 50 mg PO DAILY [facility] Last Admin: 11/28/20 07:36 Dose: 50 mg Documented by: Ondansetron HCl (Zofran Odt) 4 mg PO Q4H PRN PRN Reason: nausea, able to take PO Ondansetron HCl (Zofran) 4 mg IV Q4H PRN PRN Reason: Nausea/Vomiting Pantoprazole Sodium (Protonix Iv) 40 mg IVPUSH Q24H [facility] Last Admin: 11/27/20 16:43 Dose: 40 mg Documented by: Simvastatin (Zocor) 40 mg PO BEDTIME [facility] Last Admin: 11/27/20 21:43 Dose: 40 mg Documented by: Sodium Chloride (Saline Flush) 10 ml FLUSH ASDIRECTED PRN PRN Reason: Keep Vein Open Tamsulosin HCl (Flomax) 0.8 mg PO DAILY [facility] Last Admin: 11/28/20 07:35 Dose: 0.8 mg Documented by: Discontinued Medications Sodium Chloride (Normal Saline) 1,000 mls @ 50 mls/hr IV ASDIRECTED [facility] Last Admin: 11/27/20 16:43 Dose: 50 mls/hr Documented by: - Exam General: Alert, Oriented HEENT: Mucous Membr. Moist/[place] Neck: Supple Lungs: Clear to Auscultation, Normal Respiratory Effort Cardiovascular: Regular Rate, Regular Rhythm GI/Abdominal Exam: Normal Bowel Sounds, Soft, Non-Tender Extremities: Normal Inspection, Pedal Edema (trace edema) Skin: Warm, Dry Neurological: No New Focal Deficit - Patient Data Lab Results Last 24 hrs: Laboratory Results - last 24 hr 11/27/20 11/27/20 11/28/20 Range/Units 13:38 13:38 05:11 WBC 7.8 6.7 (5.0-10.0) 10^3/uL RBC 4.25 L 3.80 L (4.50-6.00) 10^6/uL Hgb 12.8 L 11.6 L (14.0-18.0) g/dL Hct 37.6 L 34.0 L (40.0-54.0) % MCV 88.5 89.5 (82.0-94.0) fL MCH 30.1 30.5 (27.0-32.0) pg MCHC 34.0 34.1 (33.0-38.0) g/dL RDW Coeff of Page 13.2 13.0 (11.0-15.0) % Plt Count 206 181 (150-400) 10^3/uL Neut % (Auto) 60.6 55.7 (35-85) % Lymph % (Auto) 25.7 26.5 (10-55) % [place] % (Auto) 7.2 7.8 (0-16) % Eos % (Auto) 6.0 H 9.4 H (0-5) % Baso % (Auto) 0.5 0.6 (0-3) % Neut # (Auto) 4.70 3.71 (1.80-7.00) 10^3/uL Lymph # (Auto) 2.00 1.77 (1.00-4.80) 10^3/uL [place] # (Auto) 0.56 0.52 (0.00-0.80) 10^3/uL Eos # (Auto) 0.47 H 0.63 H (0.00-0.45) 10^3/uL Baso # (Auto) 0.04 0.04 10^3/uL Sodium 141 (136-145) mEq/L Potassium 4.2 (3.5-5.0) mEq/L Chloride 104 (98-106) mEq/L Carbon Dioxide 25 (21-32) mmol/L BUN 22 H (7-18) mg/dL Creatinine 1.4 H (0.7-1.3) mg/dL Est Cr Clr Drug Dosing 41.38 mL/min Estimated GFR (MDRD) 49 L (>=60) mL/min Glucose 213 H (75-99) mg/dL Calcium 8.8 (8.4-10.1) mg/dL Total Bilirubin 0.8 (0.0-1.0) mg/dL AST 15 (15-37) U/L ALT 16 (12-78) U/L Alkaline Phosphatase 68 (46-116) U/L Troponin I < 0.017 (0.00-0.06) ng/mL C-Reactive Protein < 0.2 L (0.2-0.8) mg/dL Total Protein 6.7 (6.4-8.2) g/dL Albumin 3.5 (3.4-5.0) g/dL 11/28/20 Range/Units 05:11 WBC (5.0-10.0) 10^3/uL RBC (4.50-6.00) 10^6/uL Hgb (14.0-18.0) g/dL Hct (40.0-54.0) % MCV (82.0-94.0) fL MCH (27.0-32.0) pg MCHC (33.0-38.0) g/dL RDW Coeff of Page (11.0-15.0) % Plt Count (150-400) 10^3/uL Neut % (Auto) (35-85) % Lymph % (Auto) (10-55) % [place] % (Auto) (0-16) % Eos % (Auto) (0-5) % Baso % (Auto) (0-3) % Neut # (Auto) (1.80-7.00) 10^3/uL Lymph # (Auto) (1.00-4.80) 10^3/uL [place] # (Auto) (0.00-0.80) 10^3/uL Eos # (Auto) (0.00-0.45) 10^3/uL Baso # (Auto) 10^3/uL Sodium 142 (136-145) mEq/L Potassium 4.0 (3.5-5.0) mEq/L Chloride 106 (98-106) mEq/L Carbon Dioxide 25 (21-32) mmol/L BUN 18 (7-18) mg/dL Creatinine 1.2 (0.7-1.3) mg/dL Est Cr Clr Drug Dosing 48.28 mL/min Estimated GFR (MDRD) 58 L (>=60) mL/min Glucose 131 H D (75-99) mg/dL Calcium 8.2 L (8.4-10.1) mg/dL Total Bilirubin (0.0-1.0) mg/dL AST (15-37) U/L ALT (12-78) U/L Alkaline Phosphatase (46-116) U/L Troponin I (0.00-0.06) ng/mL C-Reactive Protein (0.2-0.8) mg/dL Total Protein (6.4-8.2) g/dL Albumin (3.4-5.0) g/dL Result Diagrams: 11/28/20 05:11 11/28/20 05:11 Sepsis Event Note - Evaluation Sepsis Screening Result: No Definite Risk - Focused Exam Vital Signs: Vital Signs Temp Pulse Resp BP BP Pulse Ox 11/28/20 07:56 98.1 F 60 18 146/80 H 94 L 11/28/20 07:35 146/80 H 11/28/20 07:34 146/80 H 11/28/20 04:00 97.5 F 55 L 16 151/80 H 96 11/27/20 23:30 96.6 F L 63 15 165/80 H 96 11/27/20 21:42 134/73 - Problem List & Annotations (1) Melena SNOMED Code(s): 2310820 Code(s): K92.1 - MELENA Status: Acute Priority: High Current Visit: Yes (2) Weakness SNOMED Code(s): 13044343 Code(s): R53.1 - WEAKNESS Status: Acute Priority: High Current Visit: Yes - Problem List Review Problem List Initiated/Reviewed/Updated: Yes - My Orders Last 24 Hours: My Active Orders 11/27/20 14:54 Resuscitation Status Routine 11/27/20 15:55 Acetaminophen [TylenoL] 650 mg PO Q4H PRN Ondansetron [Zofran ODT] 4 mg PO Q4H PRN Ondansetron [Zofran] 4 mg IV Q4H PRN Sodium Chloride 0.9% [Saline Flush] 10 ml FLUSH ASDIRECTED PRN 11/27/20 15:55 Patient Status [ADT] Routine Cardiac Monitoring [RC] 08,1999 Notify Provider Consults [RC] .PRN Oxygen Therapy [RC] .PRN Up With Assistance [RC] .PRN Vital Signs [RC] 0000,0400,0800,1200,1600,1999 Consult to Physician [CONS] Routine Saline Lock Insert [OM.PC] Routine 11/27/20 16:00 Pantoprazole [ProTONIX IV] 40 mg IVPUSH Q24H 11/27/20 Dinner Consistent Carbohydrate Diet [DIET] 11/27/20 20:00 Simvastatin [Zocor] 40 mg PO BEDTIME cloNIDine [Catapres] 0.1 mg PO BID metFORMIN HCl [Metformin HCl] 1,000 mg PO BID 11/28/20 08:00 Non-Formulary Medication [NF Drug] 0 each PO DAILY SitaGLIPtin 50 mg PO DAILY Tamsulosin [Flomax] 0.8 mg PO DAILY amLODIPine [Norvasc] 10 mg PO DAILY lisinopriL [Prinivil] 20 mg PO DAILY 11/29/20 05:11 BASIC METABOLIC PANEL,BMP [CHEM] DAILY CBC WITH AUTO DIFF [HEME] DAILY - Assessment Assessment:: Melena Weakness - Plan Plan:: Will stop IV fluids today as creatinine and BUN are normal now. FOB of stools. Continue IV Protonix. Continue to hold Eliquis. Plan for EGD in am.
[2020-11-28] MEDS: Pantoprazole 40 MG Vial IVPUSH SCH (16:14)
[2020-11-28] MEDS: SIMVASTATIN 40 MG PO SCH (19:32)
[2020-11-29 07:20] LABS: CHLORIDE,CL 107 mEq/L (98-106); SODIUM,NA 142 mEq/L (136-145)
[2020-11-29] MEDS ORDERED: Lactated Ringers 1,000 ML IV SCH (08:30)
[2020-11-29] MEDS ORDERED: Midazolam 1 MG/ML 2 ML SDV ONE ×2 (08:58→09:07)
[2020-11-29] MEDS ORDERED: Meperidine PF 25 MG/ML SDV ONE ×2 (08:58→09:04)
[2020-11-29] MEDS ORDERED: Benzocaine 20% Oral Spray 59.2 ML Canister MUCMEM ONE (09:05)
[2020-11-29] MEDS ORDERED: Meperidine PF 25 MG/ML SDV IV ONE ×2 (09:10→09:13)
[2020-11-29] MEDS ORDERED: Midazolam 1 MG/ML 2 ML SDV IV ONE ×2 (09:10→09:16)
[2020-11-29 09:36] VITALS: PULSE 64
--- NOTE | 2020-11-29 09:37 | PCM.DCSUM1 ---
Discharge Summary - Hospital Course Free Text/Narrative:: Tashi is an 80 yo male who was admitted to the hospital 11/27/20 for melena and weakness. Had reportedly been having ~1wk of black stools. Fecal occult was positive in ED. Eliquis was held and Protonix was started. Hemoglobin and VS remained stable throughout stay. Hgb was 12.8 on admit and 12.2 on discharge. Did have EGD on hospital day 2, which did not reveal cause of bleeding. Patient did have 1 brown stool while hospitalized. Creatinine was 1.4 on admit and normalized to 1.2 at time of discharge. Did receive IVF overnight on night 1. He did not have additional concerns throughout hospital stay. Patient will be discharged home in satisfactory condition. Eliquis and aspirin will be held and Protonix will be continued. He is scheduled to follow up with PCP, Dr. Leiva in 1 week. - Discharge Data Discharge Date: 11/29/20 Discharge Disposition: Home, Self-Care 01 Condition: Good - Referral to Home Health Primary Care Physician: Alejandro Leiva MD - Discharge Diagnosis/Problem(s) (1) Melena SNOMED Code(s): 5527163 ICD Code: K92.1 - MELENA Status: Acute Priority: High (2) Weakness SNOMED Code(s): 95236650 ICD Code: R53.1 - WEAKNESS Status: Acute Priority: High - Patient Summary/Data Consults: Consultations 11/27/20 15:55 Consult to Physician [CONS] Routine - Patient Instructions Diet: Usual Diet as Tolerated Activity: As Tolerated Other/Special Instructions: Hold aspirin and Eliquis until f/u apt. Discussed risks and benefits of this. Start Protonix daily. Notify provider of continued black stools or onset of any dizziness or shortness of breath - Discharge Plan *PRESCRIPTION DRUG MONITORING PROGRAM REVIEWED*: No *COPY OF PRESCRIPTION DRUG MONITORING REPORT IN PATIENT EMMA: No Prescriptions/Med Rec: Pantoprazole Sodium [Protonix] 40 mg PO DAILY #30 tab Home Medications: Home Meds Simvastatin 40 mg PO BEDTIME 01/13/16 [History] Tamsulosin HCl 0.8 mg PO DAILY 01/13/16 [History] amLODIPine Besylate [Amlodipine Besylate] 10 mg PO DAILY 01/13/16 [History] metFORMIN HCl [Metformin HCl] 1,000 mg PO BID 02/17/20 [History] SitaGLIPtin [Januvia] 50 mg PO DAILY 02/26/20 [History] Potassium Chloride [Klor-Con 10] 20 meq PO DAILY #30 tab.er 09/27/20 [Rx] lisinopriL [Prinivil] 20 mg PO DAILY #30 tablet 09/27/20 [Rx] cloNIDine [Catapres] 0.1 mg PO BID #60 tablet 10/05/20 [Rx] Pantoprazole Sodium [Protonix] 40 mg PO DAILY #30 tab 11/29/20 [Rx] Patient Handouts: Gastrointestinal Bleeding, [id number] Forms: ED Department Discharge Referrals: Alejandro Leiva MD [Primary Care Provider] - - Discharge Summary/Plan Comment DC Time >30 min.: No - General Info Date of Service: 11/29/20 Admission Dx/Problem (Free Text: Melena Weakness Subjective Update: Anum reports feeling well this morning and again on recheck following EGD. He denies any abdominal pain, N/V/D, or continued black stools. No weakness, dizziness, or shortness of breath. Has not had BM since yesterday. Functional Status: Reports: Pain Controlled, Tolerating Diet, Ambulating, Uri nating. Denies: New Symptoms - Review of Systems General: Reports: No Symptoms HEENT: Reports: No Symptoms Pulmonary: Reports: No Symptoms Cardiovascular: Reports: No Symptoms Gastrointestinal: Reports: No Symptoms. Denies: Abdominal Pain, Constipation, Decreased Appetite, Diarrhea, Hematochezia, Melena, Nausea, Vomiting Genitourinary: Reports: No Symptoms Musculoskeletal: Reports: No Symptoms Skin: Reports: No Symptoms Neurological: Reports: No Symptoms Psychiatric: Reports: No Symptoms - Patient Data Vitals - Most Recent: Last Vital Signs Temp 99 F 11/29/20 09:35 Pulse 64 11/29/20 09:35 Resp 16 11/29/20 09:35 BP 150/79 H 11/29/20 09:35 Pulse Ox 94 L 11/29/20 09:35 Weight - Most Recent: 180 lb 1.6 oz Lab Results - Last 24 hrs: Laboratory Results - last 24 hr 11/29/20 11/29/20 Range/Units 06:50 06:50 WBC 7.5 (5.0-10.0) 10^3/uL RBC 4.06 L (4.50-6.00) 10^6/uL Hgb 12.2 L (14.0-18.0) g/dL Hct 36.0 L (40.0-54.0) % MCV 88.7 (82.0-94.0) fL MCH 30.0 (27.0-32.0) pg MCHC 33.9 (33.0-38.0) g/dL RDW Coeff of Page 12.9 (11.0-15.0) % Plt Count 201 (150-400) 10^3/uL Neut % (Auto) 57.2 (35-85) % Lymph % (Auto) 25.5 (10-55) % [place] % (Auto) 8.6 (0-16) % Eos % (Auto) 8.2 H (0-5) % Baso % (Auto) 0.5 (0-3) % Neut # (Auto) 4.31 (1.80-7.00) 10^3/uL Lymph # (Auto) 1.92 (1.00-4.80) 10^3/uL [place] # (Auto) 0.65 (0.00-0.80) 10^3/uL Eos # (Auto) 0.62 H (0.00-0.45) 10^3/uL Baso # (Auto) 0.04 10^3/uL Sodium 142 (136-145) mEq/L Potassium 4.1 (3.5-5.0) mEq/L Chloride 107 H (98-106) mEq/L Carbon Dioxide 27 (21-32) mmol/L BUN 18 (7-18) mg/dL Creatinine 1.1 (0.7-1.3) mg/dL Est Cr Clr Drug Dosing 52.67 mL/min Estimated GFR (MDRD) > 60 (>=60) mL/min Glucose 138 H (75-99) mg/dL Calcium 8.3 L (8.4-10.1) mg/dL Med Orders - Current: Current Medications Acetaminophen (Tylenol) 650 mg PO Q4H PRN PRN Reason: Pain (Mild 1-3)/fever Amlodipine Besylate (Norvasc) 10 mg PO DAILY [facility] Last Admin: 11/28/20 07:35 Dose: 10 mg Documented by: Clonidine HCl (Catapres) 0.1 mg PO BID [facility] Last Admin: 11/28/20 19:32 Dose: 0.1 mg Documented by: Lactated Ringer's (Ringers, Lactated) 1,000 mls @ 125 mls/hr IV ASDIRECTED [facility] Last Admin: 11/29/20 07:38 Dose: 125 mls/hr Documented by: Lisinopril (Prinivil) 20 mg PO DAILY [facility] Last Admin: 11/28/20 07:34 Dose: 20 mg Documented by: Metformin Hcl 1,000 (Mg Own Med ) 1,000 mg PO BID [facility] Last Admin: 11/28/20 19:32 Dose: 1,000 mg Documented by: Potassium Chloride 20 Meq Tab.Er Own Med 0 each PO DAILY [facility] Last Admin: 11/28/20 07:34 Dose: 1 each Documented by: Sitagliptin 50 Mg * (* Own Med ) 50 mg PO DAILY [facility] Last Admin: 11/28/20 07:36 Dose: 50 mg Documented by: Ondansetron HCl (Zofran Odt) 4 mg PO Q4H PRN PRN Reason: nausea, able to take PO Ondansetron HCl (Zofran) 4 mg IV Q4H PRN PRN Reason: Nausea/Vomiting Pantoprazole Sodium (Protonix Iv) 40 mg IVPUSH Q24H [facility] Last Admin: 11/28/20 16:14 Dose: 40 mg Documented by: Simvastatin (Zocor) 40 mg PO BEDTIME [facility] Last Admin: 11/28/20 19:32 Dose: 40 mg Documented by: Sodium Chloride (Saline Flush) 10 ml FLUSH ASDIRECTED PRN PRN Reason: Keep Vein Open Tamsulosin HCl (Flomax) 0.8 mg PO DAILY [facility] Last Admin: 11/28/20 07:35 Dose: 0.8 mg Documented by: Discontinued Medications Benzocaine (Hurricaine 20% [place]) 0.5 ml MUCMEM .STK-MED ONE Stop: 11/29/20 09:06 Last Admin: 11/29/20 09:05 Dose: 0.5 ml Documented by: Sodium Chloride (Normal Saline) 1,000 mls @ 50 mls/hr IV ASDIRECTED [facility] Last Admin: 11/27/20 16:43 Dose: 50 mls/hr Documented by: Meperidine HCl (Demerol) Confirm Administered Dose 25 mg .ROUTE .STK-MED ONE Stop: 11/29/20 08:59 Meperidine HCl (Demerol) 25 mg IV .STK-MED ONE Stop: 11/29/20 09:11 Last Admin: 11/29/20 09:10 Dose: 25 mg Documented by: Meperidine HCl (Demerol) 25 mg IV .STK-MED ONE Stop: 11/29/20 09:14 Last Admin: 11/29/20 09:13 Dose: 25 mg Documented by: Meperidine HCl (Demerol) Confirm Administered Dose 25 mg .ROUTE .STK-MED ONE Stop: 11/29/20 09:05 Midazolam HCl (Versed 1 Mg/Ml) Confirm Administered Dose 4 mg .ROUTE .STK-MED ONE Stop: 11/29/20 08:59 Midazolam HCl (Versed 1 Mg/Ml) 4 mg IV .STK-MED ONE Stop: 11/29/20 09:11 Last Admin: 11/29/20 09:10 Dose: 4 mg Documented by: Midazolam HCl (Versed 1 Mg/Ml) Confirm Administered Dose 2 mg .ROUTE .STK-MED ONE Stop: 11/29/20 09:08 Midazolam HCl (Versed 1 Mg/Ml) 2 mg IV .STK-MED ONE Stop: 11/29/20 09:17 Last Admin: 11/29/20 09:16 Dose: 2 mg Documented by: - Exam Quality Assessment: Reports: DVT Prophylaxis General: Reports: Alert, Oriented, No Acute Distress Neck: Reports: Supple Lungs: Reports: Clear to Auscultation, Normal Respiratory Effort Cardiovascular: Reports: Regular Rate, Regular Rhythm GI/Abdominal Exam: Normal Bowel Sounds, Soft, Non-Tender, No Organomegaly, No Distention, No Abnormal Bruit, No Mass, Pelvis Stable Back Exam: Reports: Normal Inspection, Full Range of Motion Extremities: Normal Inspection, Normal Range of Motion, Non-Tender, No Pedal Edema, Normal Capillary Refill Neurological: Reports: No New Focal Deficit Psy/Mental Status: Reports: Alert, Normal Affect, Normal Mood
--- NOTE | 2020-11-29 10:20 | OR ---
DATE OF OPERATION: 11/29/2020 PREOPERATIVE DIAGNOSIS: MELENA. POSTOPERATIVE DIAGNOSIS: MELENA. SURGEON: Alejandro Leiva MD PROCEDURE: DIAGNOSTIC ESOPHAGOGASTRODUODENOSCOPY WITH BIOPSY X1. ANESTHESIA: Conscious sedation with continuous O2 saturation monitoring, nurse assist via total of 50 mg fentanyl, 6 mg Versed. COMPLICATIONS: None. SPECIMEN: Duodenal bulb biopsy x1. FINDINGS: 1. Full-length EGD. 2. Minimal duodenitis, duodenal bulb. 3. [id number] hiatal hernia without esophagitis. RECOMMENDATIONS: Ongoing medical care. INDICATIONS: The patient was admitted with melenic stools this weekend. He is on Eliquis for paroxysmal AFib and prior CVA. We elected to proceed with diagnostic endoscopy. DESCRIPTION OF PROCEDURE: The patient was prepped and draped, placed in the left lateral decubitus position. A lubricated Olympus gastroscope was inserted over a bit, advanced to cricopharyngeus area and with patient swallow, easily intubated into the esophagus. The esophageal lining was benign in its entire course. The Z-line was crisp around 34 cm. There was a [id number] sized hiatal hernia present with no spontaneous reflux seen. No distal esophagitis, stricturing, ulceration, or Argueta's changes. The scope was advanced into the stomach, through the pylorus, and into the second portion of the duodenum. This was benign. The duodenal bulb had very minimal amount of duodenitis changes. Biopsy was taken. No active bleeding. The scope was brought back into the stomach and retroflexed. The upper fundus and cardia appeared completely benign. Upon straightening, the rest of the fundus and antrum for the most part had no mucosal abnormalities including any evidence of peptic ulcer disease. Certainly, no signs of bleeding sites were seen. No polyps, masses, or otherwise. Air was then suctioned from the stomach and the scope removed without complication. The patient was stable in recovery. PRIETO/FARTUN /[id number]
[2020-11-29 10:25] VITALS: BP 131/73
[2020-11-29] MEDS: Tamsulosin 0.4 MG Cap.ER ** OWN MED PO SCH (10:38)
[2020-11-29] MEDS: Potassium Chloride 20 MEQ Tab.ER ** OWN MED PO SCH (10:38)
[2020-11-29] MEDS: METFORMIN HCL 1000 MG PO SCH (10:38)
[2020-11-29] MEDS: amLODIPine 10 MG Tab ** OWN MED PO SCH (10:39)
[2020-11-29] MEDS ORDERED: CLONIDINE 0.1 MG PO SCH (10:44)
[2020-11-29] MEDS ORDERED: cloNIDine 0.1 MG Tab ** OWN MED PO SCH (10:45)
[2020-11-29] MEDS: Lisinopril 20 MG Tab ** OWN MED PO SCH (10:50)
[2020-11-29] MEDS: SITAGLIPTIN 50 MG PO SCH (10:50)
[2020-11-29] MEDS: cloNIDine 0.1 MG Tab ** OWN MED PO SCH (12:45)
== END 2020-11-29 14:00 | disposition home or self-care (01) ==
LOC: CC.ED 14:00 → CC.MS 14:35 → UNDOADMOB 15:05 → CC.MS 11-29 08:42
PROVIDERS: ADMIT Physician Assistant Medical; ATTEND Family Medicine
DX: K29.80 Duodenitis without bleeding (principal); K44.9 Diaphragmatic hernia without obstruction or gangrene; K92.1 Melena; I10 Essential (primary) hypertension; E78.00 Pure hypercholesterolemia, unspecified; G47.30 Sleep apnea, unspecified; E11.9 Type 2 diabetes mellitus without complications; N40.0 Benign prostatic hyperplasia without lower urinary tract symptoms; R32 Unspecified urinary incontinence; Z79.82 Long term (current) use of aspirin; Z79.84 Long term (current) use of oral hypoglycemic drugs; Z79.899 Other long term (current) drug therapy
CPT/HCPCS: 36415; 43239; 80048; 80053; 84484; 85025; 86140; 88305; 93005; 93010; 96374; 99217; 99220; 99225; 99285-25; A9270-GY; C9113; G0378; J2175; J2250; J7030; J7120

== ENCOUNTER 2022-02-19 17:00 | Emergency (ER) | payer MEDICARE, BC ==
[2022-02-19 17:05] VITALS: BP 127/80; PULSE 73
== END 2022-02-19 18:54 | disposition home or self-care (01) ==
LOC: CC.ED 17:00
DX: S00.83XA Contusion of other part of head, initial encounter (principal); M25.562 Pain in left knee; E78.00 Pure hypercholesterolemia, unspecified; I10 Essential (primary) hypertension; E11.9 Type 2 diabetes mellitus without complications; I48.91 Unspecified atrial fibrillation; Z79.01 Long term (current) use of anticoagulants; Z79.4 Long term (current) use of insulin; Z79.899 Other long term (current) drug therapy; W18.30XA Fall on same level, unspecified, initial encounter
CPT/HCPCS: 70450; 73562-LT; 99284; 99284-25

== ENCOUNTER 2022-03-05 08:00 | Emergency (ER) | payer MEDICARE, BC ==
[~2022-03-05 08:00] MED LIST changes: -Lactated Ringers 1,000 ML IV SCH; +Ondansetron 4 MG/2 ML SDV ONE; -Propofol 200 MG/20 ML SDV IV ONE
[2022-03-05] MEDS ORDERED: Ondansetron 4 MG/2 ML SDV IVPUSH STA (08:10)
[2022-03-05 08:13] VITALS: BP 133/74; PULSE 98
[2022-03-05 08:59] LABS: AMPHETAMINES,URINE NEGATIVE (NEGATIVE); BARBITURATES,URINE NEGATIVE (NEGATIVE); BENZODIAZEPINE,URINE NEGATIVE (NEGATIVE); MDMA (ECSTASY), URINE NEGATIVE (NEGATIVE); METHADONE,URINE NEGATIVE (NEGATIVE); METHAMPHETAMINES,URINE NEGATIVE (NEGATIVE); OPIATES,URINE NEGATIVE (NEGATIVE); OXYCODONE,URINE NEGATIVE (NEGATIVE); PHENCYCLIDINE,URINE NEGATIVE (NEGATIVE); TCA,URINE NEGATIVE (NEGATIVE)
== END 2022-03-05 10:05 ==
LOC: CC.ED 08:00
DX: R40.20 Unspecified coma (principal); E78.00 Pure hypercholesterolemia, unspecified; I10 Essential (primary) hypertension; E11.9 Type 2 diabetes mellitus without complications; Z86.73 Personal history of transient ischemic attack (TIA), and cerebral infarction without residual deficits; Z79.899 Other long term (current) drug therapy; Z79.84 Long term (current) use of oral hypoglycemic drugs; Z79.01 Long term (current) use of anticoagulants; Z79.4 Long term (current) use of insulin
CPT/HCPCS: 36415; 51702; 70450; 71045; 80053; 80305-QW; 81001; 83605; 83735; 84484; 85025; 85610; 93005; 93010; 96374; 99285; 99285-25; J2405